=== PATIENT | female | born 1965 | race Caucasian/White ===

== ENCOUNTER 2024-12-05 15:17 | Outpatient (AMB) | payer OTHER, SELFPAY ==
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
--- OUTSIDE RECORDS SUMMARY | 2024-12-05 15:19 | XMS_ITS | Clinical Summary ---
Author Organization [facility] Address [address] [place] [address] Care Team Providers Care Economic Research Assistant Name Role Phone Flora Dominguez MD Primary Care Provider [phone] Allergies No known active allergies Medications multivitamin (MULTIPLE VITAMINS ORAL) Take 1 tablet by mouth 1 (one) time each day. Active cyclobenzaprin e (FLEXERIL) 5 mg tablet Take 1 tablet (5 mg total) by mouth at bedtime as needed for muscle spasms. 90 tablet 11/12/19 25 Active cholecalcifero l (VITAMIN D-3) 50 mcg (2,000 unit) tablet Take 1 tablet (2,000 Units total) by mouth 1 (one) time each day. 90 tablet 1 11/12/19 25 Active citalopram (CeleXA) 20 mg tablet Take 1 tablet (20 mg total) by mouth 1 (one) time each day. 90 tablet 1 12/05/19 25 Active tretinoin (RETIN-A) 0.1 % cream APPLY TO AFFECTED AREA EVERY EVENING, USE THREE TIMES A WEEK, LIMIT USE IF EXCESSIVE DRYNESS OCCURS. USE SPF IN AM 45 g 2 12/05/19 25 Active tretinoin (RETIN-A) 0.1 % cream APPLY TO AFFECTED AREA EVERY EVENING 12/08/19 22 025 Discontinued(Re order) cholecalcifero l (VITAMIN D-3) 50 mcg (2,000 unit) tablet TAKE 1 TABLET BY MOUTH EVERY DAY 90 tablet 1 04/29/20 24 025 Discontinued(Re order) citalopram (CeleXA) 20 mg tablet TAKE 1 AND /2 TABLETS BY MOUTH DAILY 135 tablet 1 07/25/19 25 025 Discontinued Active Problems Problem Noted Date Diagnosed Date Hyperlipidemia 07/30/2023 Paget's disease of bone 07/08/2019 Overview (07/30/2023): Seen on 07/07/2019 bone scan. Multiple thyroid nodules 05/28/2015 Depressive disorder 01/02/2013 Stress 02/29/2012 Seasonal allergies 02/29/2012 Acne 02/29/2012 Encounters Date Type Department Care Team Description 12/04/2024 3:30 PM EDT Office Visit [address] [phone] Flora Dominguez MD Depressive disorder (Primary Dx); Mixed hyperlipidemia; Vitamin D deficiency; Acne, unspecified acne type 11/11/2024 2:25 PM EDT - 11/11/2024 11:59 PM EDT Hospital Encounter [address] [phone] Chronic neck pain Discharge Disposition: Home or Self Care 11/11/2024 2:25 PM EDT - 11/11/2024 11:59 PM EDT Hospital Encounter [address] [phone] Lumbar back pain Discharge Disposition: Home or Self Care 11/11/2024 2:00 PM EDT Office Visit [address] [phone] Maria Guadalupe Dillon PA Chronic neck pain (Primary Dx); Lumbar back pain; Vitamin D deficiency 11/11/2024 Telephone Adult Medicine [address] [phone] Flora Dominguez MD Neck Pain 11/10/2024 Telephone Adult [address] [phone] Flora Dominguez MD Neck Pain; Back Pain; Leg Pain from Last 3 Months Immunizations Name Administration Dates Next Due Hepatitis B (Rhkexrz-F-Wwcxy , Recombivax HB-Adult) 19yo and older 07/30/2007,12/20/2006,11/14/2006 Influenza, Unspecified 03/15/2022 MMR, measles mumps and rubel la Live (Priorix; M-M-R II) 12mo and older 03/12/2007,10/25/2006 Moderna SARS-CoV-2 COVID-19, mRNA, LNP-S, preservative free 05/09/2021 PPD Test 05/17/2011 Pfizer SARS-CoV-2 COVID-19, mRNA, LNP-S, preservative free 07/27/2020,07/06/2020 Td Tetanus diptheria (Tdvax) 7yo and older 10/25 Tdap Tetanus diptheria acell ular pertussis (Boostrix; Adacel) 7yo and older 02/01/2022,05/17/2011 Surgical History Surgery Date Site/Laterality Comments TUBAL LIGATION 1998 PROCEDURE: HISTORICAL TUBAL LIGATION COLONOSCOPY 11/15/2016 PROCEDURE: HISTORICAL COLONOSCOPY; COMMENT: normal; repeat in 10 yrs Medical History Medical History Date Comments Pain in joint, shoulder region 10/25/2006 D X:Pain in joint, shoulder region Hyperlipidemia DX:Hyperlipidemi a Family History Medical History Relation Name Comments No Known Problems Father No Known Problems Mother Breast cancer Neg Hx Colon cancer Neg Hx Ovarian cancer Neg Hx Uterine cancer Neg Hx Relation Name Status Comments Brother Alive 5 brothers, all healthy Daughter Alive 1 daughter Father Alive healthy Maternal Grandfather (Age 72) MV A Maternal Grandmother (Age 95) Ol d age Mother Alive hand problem Paternal Grandfather (Age 88) Fe ll off roof Paternal Grandmother (Age 40) Br east cancer Sister Alive 6 sisters, all healthy Son Alive 3 sons Social History Tobacco Use Types Packs/Day Years Used Date Smoking Tobacco: Never Smokeless Tobacco: Never Tobacco Cessation:Counseling Given: Not Answered Alcohol Use Standard Drinks/Week Comments No 0 (1 standard drink = 0.6 oz pur e alcohol) Comments No Sex and Gender Information Value Date Recorded Sex Assigned at Not on file Legal Sex Female 10:45 AM EST Gender Identity Not on file Sexual Orientation Not on file Obstetrics History Last Filed Vital Signs Vital Sign Reading Time Taken Comments Blood Pressure 114/68 12/04/2024 3:20 PM EDT Pulse 78 12/04/2024 3:20 PM EDT Temperature 36.6 C (97.8 F) 12/04/2024 3:20 PM EDT Respiratory Rate 14 12/04/2024 3:20 PM EDT Oxygen Saturation 98% 12/04/2024 3:20 PM EDT Inhaled Oxygen Concentration - - Weight 61.7 kg (136 lb) 12/04/2024 3:20 PM EDT Height 162.6 cm (5' 4 ) 12/04/2024 3:20 PM EDT Body Mass Index 23.34 12/04/2024 3:20 PM EDT Plan of Treatment Upcoming Encounters Date Type Department Care Team (Late st Contact Info) Description 12/10/2024 2:30 PM EDT Consult Neurosurgery [facility] [address] [phone] Blade Antonio PA [address] [address] 05/27/2025 3:00 PM EST Office Visit Adult Medicine [address] [phone] Flora Dominguez MD [address] [place] [phone] Health Maintenance Due Date Last Done Comments Pneumococcal Vaccine: 50+ Years (1 of 1 - PCV) 2014 Zoster Vaccines (1 of 2) 2014 HIV Screening 04/29/2022 Social Influencers of Health Screening 04/29/2022 Cervical Cancer Screening: Pap Smear 06/18/2023 06/18/2020, 06/18/2020 Breast Cancer Screening 12/18/2023 12/18/19 22, 12/11/2020, 11/24/2017, Additional history exists COVID-19 Vaccine () 01/20/2024 05/09/2021, 07/27/2020, 07/06/2020 Depression Screening 05/21/2024 Influenza Vaccine (#1) 2025 03/15/2022 Colorectal Cancer Screening: Colonoscopy 11/15/2026 11/15/2016 Cholesterol Screening (Lipid Panel) 04/08/2029 04/08/2024, 06/08/2023 DTaP,Tdap,and Td Vaccines (4 - Td or Tdap) 02/02/2032 02/01/2022, 05/17/2011, 10/25/2006 RSV Immunization Adult Patients (1 - 1-dose 75+ series) 12/31/2039 MMR Vaccines Aged Out 03/12/2007, 10/25/2006 No lo nger eligible based on patient's age to complete this topic Hepatitis B Vaccines Completed 07/30/2007, 12/20/2006, 11/14/2006 Hepatitis C Screening Addressed 03/25/2023 Overri dden with the intention of not completing the topic HIB Vaccines Aged Out No longer eligi ble based on patient's age to complete this topic HPV Vaccines Aged Out No longer eligi ble based on patient's age to complete this topic Hepatitis A Vaccines Aged Out No long er eligible based on patient's age to complete this topic IPV Vaccines Aged Out No longer eligi ble based on patient's age to complete this topic Meningococcal ACWY Vaccine Aged Out N o longer eligible based on patient's age to complete this topic Meningococcal B Vaccine Aged Out No l onger eligible based on patient's age to complete this topic RSV Immunization Patients Under 20 months Aged Out No longer eligible based on patient's age to complete this topic Varicella Vaccines Aged Out No longer eligible based on patient's age to complete this topic Procedures Procedure Name Priority Date/Time Associated Diagnosis Comments XR LUMBAR SPINE 4+ VIEWS Routine 11/11/2024 2:47 PM EDT Lumbar back pain XR CERVICAL SPINE 4-5 VIEWS Routine 11/11/2024 2:47 PM EDT Chronic neck pain LIPID PANEL WITH REFLEX TO DIRECT LDL Routine 04/08/2024 11:45 AM EST Globus sensation SCREENING MAMMOGRAPHY BI 2-VIEW BREAST INC CAD Routine 12/17/2021 10:21 AM EDT Encounter for screening mammogram for malignant neoplasm of breast PAP SMEAR Routine 06/18/2020 HM COLONOSCOPY Routine 11/15/2016 from Last 3 Months or Most Recently Relevant to Health Maintenance Results * XR Lumbar Spine 4+ Views (11/11/2024 2:47 PM EDT) Anatomical Region Laterality Modality Spine, L-spine Radiographic Marii ging 11/11/2024 3:13 PM EDT Impressions 11/11/2024 3:14 PM EDT Multilevel degenerative changes, mildly progressed from 2019. -------- FINAL REPORT -------- Dictated By: Leena Curry Dictated Date: 11/11/2024 15:13 ET Assigned Physician: Leena Curry Reviewed and Electronically Signed By: Leena Curry Signed Date: 11/11/2024 15:14 ET Workstation ID: [id number] Transcribed By: Self Edit Transcribed Date: 11/11/2024 15:13 ET Narrative 11/11/2024 3:14 PM EDT XR LUMBAR SPINE 4 VIEWS Reason: lumbar back pain with radicular sx Comparison: Radiographs on June 04, 2019 FINDINGS: Normal alignment. No compression fracture. Disc spaces are preserved. Facet arthropathy at multiple levels, mildly progressed from 2020. Sacroiliac joints are intact. Unchanged appearance of the left iliac bone. Procedure Note Leena Curry MD - 11/11/2024 XR LUMBAR SPINE 4 VIEWS Reason: lumbar back pain with radicular sx Comparison: Radiographs on June 04, 2019 FINDINGS: Normal alignment. No compression fracture. Disc spaces are preserved.Facet arthropathy at multiple levels, mildly progressed from 2019.Sacroiliac joints are intact. Unchanged appearance of the left iliacbone. IMPRESSION: Multilevel degenerative changes, mildly progressed from 2020. -------- FINAL REPORT -------- Dictated By: Leena Curry Dictated Date: 11/11/2024 15:13 ET Assigned Physician: Leena Curry Reviewed and Electronically Signed By: Leena Curry Signed Date: 11/11/2024 15:14 ET Workstation ID: [id number] Transcribed By: Self Edit Transcribed Date: 11/11/2024 15:13 ET Maria Guadalupe Dillon JOSE JUAN IMG XR PROCEDURES Final Result * XR Cervical Spine 4-5 Views (11/11/2024 2:47 PM EDT) Anatomical Region Laterality Modality Spine, C-spine Radiographic Marii ging 11/11/2024 3:10 PM EDT Impressions 11/11/2024 3:13 PM EDT Degenerative changes with neuroforamina narrowing, progressed from 2018. -------- FINAL REPORT -------- Dictated By: Leena Curry Dictated Date: 11/11/2024 15:10 ET Assigned Physician: Leena Curry Reviewed and Electronically Signed By: Leena Curry Signed Date: 11/11/2024 15:13 ET Workstation ID: [id number] Transcribed By: Self Edit Transcribed Date: 11/11/2024 15:10 ET Narrative 11/11/2024 3:13 PM EDT XR CERVICAL SPINE 4-5 VIEWS Reason: neck pain, chronic with radicular symptoms Comparison: Radiographs on January 15, 2018 FINDINGS: Straightening of the cervical lordosis. Mild anterolisthesis of C4 on C5. No compression fracture. Degenerative changes at C5-C6 and C6-C7 with disc space narrowing and marginal osteophytes have mildly progressed from 2018. Neuroforamina narrowing on the right side at C3-C4, C5-C6 and C6-C7. Neuroforamina narrowing on the left side at C3-C4 and C6-C7. Prevertebral soft tissues are unremarkable. Procedure Note Leena uCrry MD - 11/11/2024 XR CERVICAL SPINE 4-5 VIEWS Reason: neck pain, chronic with radicular symptoms Comparison: Radiographs on January 15, 2018 FINDINGS: Straightening of the cervical lordosis. Mild anterolisthesis of C4 on C5.No compression fracture. Degenerative changes at C5-C6 and C6-C7 with discspace narrowing and marginal osteophytes have mildly progressed from 2018.Neuroforamina narrowing on the right side at C3-C4, C5-C6 and C6-C7.Neuroforamina narrowing on the left side at C3-C4 and C6-C7. Prevertebralsoft tissues are unremarkable. IMPRESSION: Degenerative changes with neuroforamina narrowing, progressed from 2018. -------- FINAL REPORT -------- Dictated By: Leena Curry Dictated Date: 11/11/2024 15:10 ET Assigned Physician: Leena Curry Reviewed and Electronically Signed By: Leena Curry Signed Date: 11/11/2024 15:13 ET Workstation ID: [id number] Transcribed By: Self Edit Transcribed Date: 11/11/2024 15:10 ET Maria Guadalupe MANZANO IMG XR PROCEDURES Final Result * (ABNORMAL) Lipid panel with reflex to direct LDL (04/08/2024 11:45 AM EST) Cholesterol 236(H) 0 - 200 mg/dL LAB CHEMISTRY METHOD 04/08/2024 2:50 PM [facility] Triglycerides 265(H) 0 - 150 mg/dL LAB CHEMISTRY METHOD 04/08/2024 2:50 PM [facility] HDL 67 >=40 mg/dL LAB CHEMISTRY METHOD 04/08/2024 2:50 PM EST [facility] LDL Calculated 116(H) 0 - 100 mg/dL LAB CHEMISTRY METHOD 04/08/2024 2:50 PM [facility] VLDL Cholesterol Anthony 53 mg/dL LAB CHEMISTRY METHOD 04/08/2024 2:50 PM EST [facility] Non HDL Chol. (LDL+VLDL) 169(H) <145 mg/dL LAB CHEMISTRY METHOD 04/08/2024 2:50 PM EST [facility] Chol/HDL Ratio 3.5 0.0 - 4.4 LAB CHEMISTRY METHOD 04/08/2024 2:50 PM EST [facility] Blood Venous blood specimen / Unknown Venipuncture / Unknown 04/08/2024 11:45 AM EST 04/08/2024 11:45 AM EST us Sourav MANZANO LAB BLOOD ORDERABLES Fin al Result [facility] ([facility] [address] [place] [address], * SCREENING MAMMOGRAPHY BI 2-VIEW BREAST INC CAD (12/17/2021 10:21 AM EDT) Anatomical Region Laterality Modality Radiographic Marii ging 12/11/2020 12:2 5 PM EDT Narrative 12/19/2021 2:29 PM EDT This is a summary report. The complete report is available in the patient's medical record. If you cannot access the medical record, please contact the sending organization for a detailed fax or copy. Exam: Screening mammogram Findings: Digital bilateral full-field screening mammography is performed with tomosynthesis and interpreted with the aid of computer-aided detection. Comparison is made with 12/11/2020 and 11/24/2017. Breast parenchyma is heterogeneously dense, limiting mammographic sensitivity. No new suspicious mass, architectural distortion, or suspicious calcifications. Impression: No mammographic evidence of malignancy. BI-RADS 1 - negative Procedure Note Chioma Ward MD - 05/09/2022 This is a summary report. The complete report is available in thepatient's medical record. If you cannot access the medical record, pleasecontact the sending organization for a detailed fax or copy. Exam: Screening mammogram Findings: Digital bilateral full-field screening mammography is performedwith tomosynthesis and interpreted with the aid of computer-aideddetection. Comparison is made with 12/11/2020 and 11/24/2017. Breast parenchyma is heterogeneously dense, limiting mammographicsensitivity. No new suspicious mass, architectural distortion, orsuspicious calcifications. Impression: No mammographic evidence of malignancy. BI-RADS 1 - negative us Radiology Results Historical MD IMJosie XR PROCEDURE S Final Result * Pap smear (06/18/2020) 06/18/2020 Narrative HISTORICAL TESTING LAB RESULTING AGENCY - 06/25/2020 11:41 AM EST [id number] THINPREP PAP, IMAGED: NEGATIVE FOR SQUAMOUS INTRAEPITHELIAL LESION AND MALIGNANCY . REACTIVE CELLULAR CHANGES. ABUNDANT PARTIALLY OBSCURING ACUTE INFLAMMATORY CELLS ARE PRESENT. RICKEY OLIVARES , CT(ASCP) (CASE SCREENED 06 23 2020) CIRO JUSTIN M.D. , PATHOLOGIST (CASE ELECTRONICALLY SIGNED 06 24 2020) RESULT OF APTIMA HIGH RISK HPV ASSAY: HIGH RISK HPV: NEGATIVE (SEROTYPES 16,18,31,33,35,39,45,51,52,56,58,59,66,68) COMPLETED ON 2020-06-22 ADEQUACY: SATISFACTORY ENDOCERVICAL/TRANSFORMATION ZONE COMPONENT PRESENT. SOURCE: THINPREP PAP HPV ANY DX: REFLEX 16 AND 18, CERVICAL, IMAGED CLINICAL INFORMATION: HPV ANY DIAGNOSIS. MENOPAUSE, PAP HX 2016 ASCUS, NEG HPV, Z12.4 Kenna SAMUELS LAB CYTOLOGY ORDERABLES Final Result HISTORICAL TESTING LAB RESULTING AGENCY * Colonoscopy (11/15/2016) Colonoscopy negative Anatomical Region Laterality Modality Other us Historical Provider HEALTH MAINTENANCE Final Result from Last 3 Months or Most Recently Relevant to Health Maintenance Insurance [facility] Care Teams Economic Research Assistant Relationship Specialty Start Date End Date Flora Dominguez MD [address] [place] [id number] PCP - General Internal Medicine 04/07/24
--- OUTSIDE RECORDS SUMMARY | 2024-12-05 15:19 | XMS_ITS | Clinical Summary ---
Author Organization [employer] Address [address] [facility] [address] [place] [address] Care Team Providers Care Advisory Internship Name Role Phone Unavailable Primary Care Provider Unavailabl e Allergies No known active allergies Medications cholecalciferol (Vitamin D-3) 50 MCG (1999) tablet Take by mouth in the morning. 05/04/2023 Active citalopram (CeleXA) 20 MG tablet TAKE 1 & 1/2 TABLETS BY MOUTH DAILY 05/04/2023 Active Social History Tobacco Use Types Packs/Day Years Used Date Smoking Tobacco: Never Smokeless Tobacco: Never Tobacco Cessation:Counseling Given: Not Answered Alcohol Use Standard Drinks/Week Comments Defer 0 (1 standard drink = 0.6 oz pur e alcohol) Comments Unknown Sex and Gender Information Value Date Recorded Sex Assigned at Female 03/20/2022 10:23 AM EDT Legal Sex Female 10:23 AM EDT Gender Identity Female 03/20/2022 10:23 AM EDT Sexual Orientation Straight 03/20/2022 10 :23 AM EDT Last Filed Vital Signs Vital Sign Reading Time Taken Comments Blood Pressure 120/60 05/17/2023 11:02 AM EST Pulse 65 05/17/2023 11:02 AM EST Temperature - - Respiratory Rate - - Oxygen Saturation - - Inhaled Oxygen Concentration - - Weight - - Height - - Body Mass Index - - Plan of Treatment Health Maintenance Due Date Last Done Comments CT Colonography 1964 Colonoscopy 1964 Colorectal Cancer Screening 1964 Depression Screening 1964 FIT DNA/Cologuard 1964 FIT 1964 FOBT 1964 HIV Screening 1964 SDOH Screening 1964 Sigmoidoscopy 1964 Disability Screening 1964 Alcohol/Substance Use Screening 1976 Hepatitis C Screening 1982 Pap Smear 1985 Cervical Cancer Screening 1994 HPV/Cotest 1994 Mammogram 2004 Pneumococcal Vaccine: 50+ Years (1 of 1 - PCV) 2014 Zoster Vaccines (1 of 2) 2014 Dental Oral Exam 11/17/2023 05/17/2023, , 08/10/2021 Dental Prophylaxis 11/17/2023 05/17/2023, 08/31/2021 COVID-19 Vaccine ( season) 2024 05/09/2021, 07/27/2020, 07/06/2020 Dental X-Ray: Full Mouth 08/11/2024 08/10/2021 Influenza Vaccine (#1) 2025 03/15/2022 Tobacco Screening 02/25/2025 02/26/2024 Dental X-Ray: Bitewings 02/26/2025 02/26/20, 12/11/2022, 11/02/2022, Additional history exists DTaP/Tdap/Td Vaccines (3 - Td or Tdap) 02/02/2032 02/01/2022, 05/17/2011, 10/25/2006 RSV Patients and Patients Aged 60 years or older (1 - 1-dose 75+ series) 12/31/2039 Hepatitis B Vaccines Completed 07/30/2007, 12/20/2006, 11/14/2006 HIB Vaccines Aged Out No longer eligi [...] patient's age to complete this topic Meningococcal Vaccine Aged Out No kalie chet eligible based on patient's age to complete this topic RSV under 20 months Aged Out No longe r eligible based on patient's age to complete this topic Rotavirus Vaccines Aged Out No longer eligible based on patient's age to complete this topic Procedures Procedure Name Priority Date/Time Associated Diagnosis Comments BITEWING - SINGLE RADIOGRAPHIC IMAGE Routine 02/26/2024 10:00 AM EDT PROPHYLAXIS - ADULT Routine 05/17/2023 1 1:00 AM EST PERIODIC ORAL EVALUATION - ESTABLISHED PATIENT Routine 05/17/2023 11:00 AM EST from Last 3 Months or Most Recently Relevant to Health Maintenance
[2024-12-05 15:22] VITALS: BP 104/53; PULSE 85; O2SAT 99; BMI 23.7
== END 2024-12-05 16:11 | disposition home or self-care (01) ==
PROVIDERS: PCP Internal Medicine; Visit Provider Nurse Practitioner Family
DX: M54.12 Radiculopathy, cervical region (principal); M50.30 Other cervical disc degeneration, unspecified cervical region; M47.812 Spondylosis without myelopathy or radiculopathy, cervical region; M54.50 Low back pain, unspecified; G89.29 Other chronic pain; M51.369 Other intervertebral disc degeneration, lumbar region without mention of lumbar back pain or lower extremity pain; M47.817 Spondylosis without myelopathy or radiculopathy, lumbosacral region
CPT/HCPCS: 99204

== ENCOUNTER 2024-12-22 16:05 | Outpatient (REF) | payer OTHER, SELFPAY ==
--- NOTE | ~2024-12-22 | MR_ITS ---
EXAM: MRI cervical spine without contrast TECHNIQUE: Multiplanar multisequence imaging through the cervical spine was performed from the base of the skull through at least T1. INDICATION: Cervical radiculopathy PRIOR: None FINDINGS: Skull Base: There is no tonsillar ectopia. Cranialcervical junction is intact. Cord: There is mildly increased central cord signal on fluid sensitive sequences between C4-5 and C7-T1. Marrow and end-plates: There are no marrow replacing lesions. Degenerative endplate signal changes are present at C5-6 and C6-7. Alignment: There is mild reversal cervical lordosis. Soft tissues: Paraspinal soft tissues and major vascular structures are unremarkable. C2-3: Mild broad-based disc bulge is present. Uncovertebral osteophytes and this results in moderate right and severe left foraminal narrowing. C3-4: Broad-based disc bulge and ligamentum flavum thickening results in mild spinal stenosis. Disc and osteophytes result in mild right and severe left foraminal narrowing. C4-5: Disc bulge results in borderline narrowing of the spinal canal. Disc and osteophytes results in moderate right and severe left foraminal narrowing. C5-6: Broad-based disc bulges asymmetric toward the right central region. There is mild loss of disc height and mild spinal stenosis. Disc and osteophyte results in mild to moderate bilateral foraminal narrowing. C6-7: There is mild loss disc height and circumferential broad-based disc bulge with endplate osteophytes resulting in moderate spinal stenosis. There is focal left foraminal extrusion. There is severe bilateral foraminal narrowing, greater on the left. C7-T1: There is no disc bulge, herniation, spinal stenosis, or foraminal narrowing. MR/MR cervical spine wo con IMPRESSION: C2-3: There is moderate right and severe left foraminal narrowing. C3-4: There is a mild spinal stenosis and severe left foraminal narrowing. C4-5: There is borderline narrowing of the spinal and moderate right and severe left foraminal narrowing. C5-6: There is mild spinal stenosis and mild to moderate bilateral foraminal narrowing. C6-7: There is moderate spinal stenosis with focal left disc herniation and severe bilateral foraminal narrowing, greater on the left. Electronically signed by: Armani Miles MD 12/22/2024 05:04 PM EDT
--- OUTSIDE RECORDS SUMMARY | 2024-12-22 16:08 | XMS_ITS | Clinical Summary ---
Author Organization Patient Business [employer] [facility] Address [address] [place] [address] Care Team Providers Care Small Arms Repairer Name Role Phone Flora Dominguez MD Primary Care Provider [phone] Allergies No known active allergies Medications multivitamin [...] EVERY EVENING 12/08/19 22 025 Discontinued(Re order) citalopram (CeleXA) 20 mg tablet TAKE 1 AND 1/2 TABLETS BY MOUTH DAILY 135 tablet 1 07/25/19 25 025 Discontinued Active Problems Problem Noted Date Diagnosed Date Hyperlipidemia 07/30/2023 Paget's disease of bone 07/08/2019 Overview (07/30/2023): Seen on 07/07/2019 bone scan. Multiple thyroid nodules 05/28/2015 Depressive disorder 01/02/2013 Stress 02/29/2012 Seasonal allergies 02/29/2012 Acne 02/29/2012 Encounters Date Type Department Care Team Description 12/04/2024 3:30 PM EDT Office Visit Adult [address] [phone] Flora Dominguez MD Depressive disorder (Primary Dx); Mixed hyperlipidemia; Vitamin D deficiency; Acne, unspecified acne type 11/11/2024 2:25 PM EDT - 11/11/2024 11:59 PM EDT Hospital Encounter [address] [phone] Chronic neck pain Discharge Disposition: Home or Self Care 11/11/2024 2:25 PM EDT - 11/11/2024 11:59 PM EDT Hospital Encounter [address] [phone] Lumbar back pain Discharge Disposition: Home or Self Care 11/11/2024 2:00 PM EDT Office Visit [address] [phone] Maria Guadalupe Dillon PA Chronic neck pain (Primary Dx); Lumbar back pain; Vitamin D deficiency 11/11/2024 Telephone Adult [address] [phone] Flora Dominguez MD Neck Pain 11/10/2024 Telephone Adult [address] [phone] Flora Dominguez MD Neck Pain; Back Pain; Leg Pain from Last 3 Months Immunizations Name Administration Dates Next Due Hepatitis B (Igutten-C-[place] , Recombivax HB-Adult) 19yo and older 07/30/2007,12/20/2006,11/14/2006 [...] Care Team (Late st Contact Info) Description 05/27/2025 3:00 PM EST Office Visit Adult Medicine [facility] [place] [address] [place] [phone] Flora Dominguez MD [address] [place] [id number] Health Maintenance Due Date Last Done Comments Pneumococcal Vaccine: 50+ Years (1 of 1 - PCV) 2014 Zoster Vaccines (1 of 2) 2014 HIV Screening 04/29/2022 Social Influencers of Health Screening 04/29/2022 Cervical Cancer Screening: Pap Smear 06/18/2023 06/18/2020, 06/18/2020 Breast Cancer Screening 12/18/2023 12/18/19 22, 12/11/2020, 11/24/2017, Additional history exists COVID-19 Vaccine ( - season) 2024 05/09/2021, 07/27/2020, 07/06/2020 Depression Screening 05/21/2024 Influenza Vaccine (#1) 2025 03/15/2022 Colorectal Cancer Screening: Colonoscopy 11/15/2026 11/15/2016 Cholesterol Screening (Lipid Panel) 12/12/2029 12/12/2024, 04/08/2024, 06/08/2023 DTaP,Tdap,and Td Vaccines (4 - [...] Procedure Name Priority Date/Time Associated Diagnosis Comments CBC WITH AUTO DIFFERENTIAL Routine 12/12/2024 11:46 AM EDT Depressive disorder LIPID PANEL WITH REFLEX TO DIRECT LDL Routine 12/12/2024 11:46 AM EDT Mixed hyperlipidemia COMPREHENSIVE METABOLIC PANEL Routine 12/12/2024 11:46 AM EDT Mixed hyperlipidemia CBC AND DIFFERENTIAL Routine 12/12/2024 11:46 AM EDT Depressive disorder THYROID STIMULATING HORMONE WITH REFLEX TO FREE T4 AND FREE T3 Routine 12/12/2024 11:46 AM EDT Depressive disorder VITAMIN D 25 HYDROXY Routine 12/12/2024 11:46 AM EDT Vitamin D deficiency XR LUMBAR SPINE 4+ VIEWS Routine 11/11/2024 2:47 PM EDT Lumbar back pain XR CERVICAL SPINE 4-5 VIEWS Routine 11/11/2024 2:47 PM EDT Chronic neck pain SCREENING MAMMOGRAPHY BI 2-VIEW BREAST INC CAD Routine 12/17/2021 10:21 AM EDT Encounter for screening mammogram for malignant neoplasm of breast PAP SMEAR Routine 06/18/2020 HM COLONOSCOPY Routine 11/15/2016 from Last 3 Months or Most Recently Relevant to Health Maintenance Results * Thyroid stimulating hormone with reflex to free t4 and free t3 (12/12/2024 11:46 AM EDT) TSH 1.13 0.40 - 4.00 mcIU/mL LAB CHEMISTRY METHOD 12/12/2024 4:59 PM EDT [facility] Blood Venous blood specimen / Unknown Venipuncture / Unknown 12/12/2024 11:46 AM EDT 12/12/2024 11:46 AM EDT us Flora Dominguez MD LAB BLOOD ORDERABLES Final Resul t [facility] [address] [place] [address], [place] [phone] * (ABNORMAL) Lipid panel with reflex to direct LDL (12/12/2024 11:46 AM EDT) Cholesterol 220(H) 0 - 200 mg/dL LAB CHEMISTRY METHOD 12/12/2024 4:06 PM EDT [facility] Triglycerides 117 0 - 150 mg/dL LAB CHEMISTRY METHOD 12/12/2024 4:06 PM EDT [facility] HDL 62 >=40 mg/dL LAB CHEMISTRY METHOD 12/12/2024 4:06 PM EDT [facility] LDL Calculated 135(H) 0 - 100 mg/dL LAB CHEMISTRY METHOD 12/12/2024 4:06 PM EDT [facility] VLDL Cholesterol Anthony 23.4 mg/dL LAB CHEMISTRY METHOD 12/12/2024 4:06 PM EDT [facility] Non HDL Chol. (LDL+VLDL) 158(H) <145 mg/dL LAB CHEMISTRY METHOD 12/12/2024 4:06 PM EDT [facility] Chol/HDL Ratio 3.5 0.0 - 4.4 LAB CHEMISTRY METHOD 12/12/2024 4:06 PM [facility] Blood Venous blood specimen / Unknown Venipuncture / Unknown 12/12/2024 11:46 AM EDT 12/12/2024 11:46 AM EDT us Flora Dominguez MD LAB BLOOD ORDERABLES Final Resul t [facility] [address] [place] [address], [place] [phone] * CBC auto differential (12/12/2024 11:46 AM EDT) WBC 5.2 4.8 - 10.8 K/mcL LAB HEMETOLOGY METHOD 12/12/2024 2:07 PM EDT [facility] RBC 4.80 3.80 - 4.80 M/mcL LAB HEMETOLOGY METHOD 12/12/2024 2:07 PM [facility] Hemoglobin 13.2 11.5 - 16.0 g/dL LAB HEMETOLOGY METHOD 12/12/2024 2:07 PM EDT [facility] Hematocrit 41.1 35.0 - 47.0 % LAB [facility]ETOLOGY [facility] MCV 85.6 79.0 - 98.0 FL LAB HEMETOLOGY METHOD 12/12/2024 2:07 PM [facility] MCH 27.5 27.0 - 32.0 pcg LAB HEMETOLOGY METHOD 12/12/2024 2:07 PM EDT [facility] MCHC 32.1 32.0 - 37.0 g/dL LAB HEMETOLOGY METHOD 12/12/2024 2:07 PM T [facility] RDW 12.9 11.0 - 15.0 % LAB HEMETOLOGY METHOD 12/12/2024 2:07 PM [facility] Platelets 160 130 - 400 K/mcL LAB HEMETOLOGY METHOD 12/12/2024 2:07 PM [facility] MPV 10.3 7.0 - 11.0 FL LAB HEMETOLOGY METHOD 12/12/2024 2:07 PM [facility] NRBC 0.0 <1.0 % LAB HEMETOLOGY METHOD 12/12/2024 2:07 PM [facility] NRBC Absolute 0.00 <0.10 K/mcL LAB HEMETOLOGY METHOD 12/12/2024 2:07 PM [facility] Neutrophils Relative 62.7 % LAB HEMETOLOGY METHOD 12/12/2024 2:07 PM [facility] Lymphocytes Relative 28.1 % LAB HEMETOLOGY METHOD 12/12/2024 2:07 PM [facility] Monocytes Relative 6.9 % LAB HEMETOLOGY METHOD 12/12/2024 2:07 PM [facility] Eosinophils Relative 1.7 % LAB HEMETOLOGY METHOD 12/12/2024 2:07 PM [facility] Basophils Relative 0.4 % LAB HEMETOLOGY METHOD 12/12/2024 2:07 PM [facility] Immature Granulocytes Relative 0.2 % LAB HEMETOLOGY METHOD 12/12/2024 2:07 PM [facility] Neutrophils Absolute 3.29 1.50 - 7.00 K/mcL LAB HEMETOLOGY METHOD 12/12/2024 2:07 PM [facility] Lymphocytes Absolute 1.47 1.00 - 5.00 K/mcL LAB HEMETOLOGY METHOD 12/12/2024 2:07 PM EDT [facility] Monocytes Absolute 0.36 0.20 - 1.00 K/mcL LAB HEMETOLOGY METHOD 12/12/2024 2:07 PM EDT [facility] Eosinophils Absolute 0.09 0.00 - 0.50 K/[facility] LAB HEMETOLOGY METHOD 12/12/2024 2:07 PM EDT [facility] Basophils Absolute 0.02 0.00 - 0.20 K/[facility] LAB HEMETOLOGY METHOD 12/12/2024 2:07 PM EDT [facility] Immature Granulocytes Absolute 0.01 0.00 - 0.03 K/[facility] LAB HEMETOLOGY METHOD 12/12/2024 2:07 PM EDT [facility] Blood Venous blood specimen / Unknown Venipuncture / Unknown 12/12/2024 11:46 AM EDT 12/12/2024 11:46 AM EDT us Flora Dominguez MD LAB BLOOD ORDERABLES Final Resul t [facility] [address] [place] [address], * Vitamin D 25 hydroxy (12/12/2024 11:46 AM EDT) Vit D, 25-Hydroxy 49.1 30.0 - 80.0 ng/mL LAB CHEMISTRY METHOD 12/12/2024 4:59 PM EDT [facility] Blood Venous blood specimen / Unknown Venipuncture / Unknown 12/12/2024 11:46 AM EDT 12/12/2024 11:46 AM EDT us Flora Dominguez MD LAB BLOOD ORDERABLES Final Resul t [facility] [address] [place] [address], [place] [phone] * (ABNORMAL) Comprehensive metabolic panel (12/12/2024 11:46 AM EDT) Sodium 136 133 - 145 mmol/L LAB CHEMISTRY METHOD 12/12/2024 4:06 PM [facility] Potassium 3.8 3.5 - 5.5 mmol/L LAB CHEMISTRY METHOD 12/12/2024 4:06 PM [facility] Chloride 99 96 - 110 mmol/L LAB CHEMISTRY METHOD 12/12/2024 4:06 PM [facility] CO2 33(H) 21 - 32 mmol/L LAB CHEMISTRY METHOD 12/12/2024 4:06 PM [facility] Anion Gap 4 3 - 11 LAB CHEMISTRY METHOD 12/12/2024 4:06 PM [facility] Glucose 82 70 - 100 mg/dL LAB CHEMISTRY METHOD 12/12/2024 4:06 PM [facility] BUN 9 5 - 25 mg/dL LAB CHEMISTRY METHOD 12/12/2024 4:06 PM [facility] Creatinine 0.62 0.50 - 1.10 mg/dL LAB CHEMISTRY METHOD 12/12/2024 4:06 PM [facility] eGFR 103 >=60 mL/min/1. 73m2 LAB CHEMISTRY METHOD 12/12/2024 4:06 PM [facility] Comment:Calculation based on the Chronic Kidney Disease Epidemiology Collaboration (CKD-EPI) equation refit without adjustment for race. BUN/Creatinine Ratio 14.5 LAB CHEMISTRY METHOD 12/12/2024 4:06 PM [facility] Calcium 9.3 8.5 - 10.5 mg/dL LAB CHEMISTRY METHOD 12/12/2024 4:06 PM [facility] AST (SGOT) 18 10 - 42 unit/L LAB CHEMISTRY METHOD 12/12/2024 4:06 PM EDT [facility] ALT (SGPT) 26 10 - 60 unit/L LAB CHEMISTRY METHOD 12/12/2024 4:06 PM EDT [facility] Alkaline Phosphatase 91 42 - 121 unit/L LAB CHEMISTRY METHOD 12/12/2024 4:06 PM EDT [facility] Total Protein 7.0 6.0 - 8.0 g/dL LAB CHEMISTRY METHOD 12/12/2024 4:06 PM EDT [facility] Albumin 4.4 3.2 - 5.0 g/dL LAB CHEMISTRY METHOD 12/12/2024 4:06 PM EDT [facility] Total Bilirubin 0.3 0.0 - 1.4 mg/dL LAB CHEMISTRY METHOD 12/12/2024 4:06 PM EDT [facility] Blood Venous blood specimen / Unknown Venipuncture / Unknown 12/12/2024 11:46 AM EDT 12/12/2024 11:46 AM EDT us Flora Dominguez MD LAB BLOOD ORDERABLES Final Resul t [facility] [address] [place] [address], [place] [phone] * XR Lumbar Spine 4+ Views (11/11/2024 [...] Signed Date: 11/11/2024 15:14 ET Workstation ID: [id number] Transcribed By: Self Edit Transcribed Date: 11/11/2024 15:13 ET Narrative 11/11/2024 3:14 PM EDT XR LUMBAR SPINE 4 VIEWS Reason: lumbar back pain with radicular sx Comparison: Radiographs on June 04, 2019 FINDINGS: Normal alignment. No compression fracture. Disc spaces are preserved. Facet arthropathy at multiple levels, mildly progressed from 2019. Sacroiliac joints are intact. Unchanged appearance of [...] IMPRESSION: Multilevel degenerative changes, mildly progressed from 2019. -------- FINAL REPORT -------- Dictated By: Leena Curry Dictated Date: 11/11/2024 15:13 ET Assigned Physician: Leena Curry Reviewed and Electronically Signed By: Leena Curry Signed Date: 11/11/2024 15:14 ET Workstation ID: [id number] Transcribed By: Self Edit Transcribed Date: 11/11/2024 15:13 ET [facility] Toma Bernard MANZANO IMG XR PROCEDURES Final Result * XR [...] Signed Date: 11/11/2024 15:13 ET Workstation ID: [id number] Transcribed By: Self Edit Transcribed Date: 11/11/2024 [...] soft tissues are unremarkable. Procedure Note Leena Curry MD - 11/11/2024 XR CERVICAL SPINE 4-5 [...] Signed Date: 11/11/2024 15:13 ET Workstation ID: [id number] Transcribed By: Self Edit Transcribed Date: 11/11/2024 15:10 ET Maria Guadalupe Toma Bernard Wilma MANZANO IMG XR PROCEDURES Final Result * SCREENING MAMMOGRAPHY BI 2-VIEW BREAST INC [...] 1 - negative us Radiology Results Historical IMJosie XR PROCEDURE S Final Result * Pap smear (06/18/2020) 06/18/2020 Narrative HISTORICAL TESTING LAB RESULTING AGENCY - 06/25/2020 11:41 AM EST [id number] THINPREP PAP, IMAGED: NEGATIVE FOR SQUAMOUS INTRAEPITHELIAL [...] Colonoscopy negative Anatomical Region Laterality Modality Other Historical Provider HEALTH MAINTENANCE Final Result from Last 3 Months or Most Recently Relevant to Health Maintenance Insurance [facility] Care Teams Small Arms Repairer Relationship Specialty Start Date End Date Flora Dominguez MD [address] [place] [phone] PCP - General Internal Medicine 04/07/24
--- OUTSIDE RECORDS SUMMARY | 2024-12-22 16:08 | XMS_ITS ---
Author Name [facility] Organization Unknown Care Team Organization Name Specialty Phone Email Start Date End Da te [facility] lFora Dominguez Primary Care 11/23/2022 024 [facility] Glenna Primary Care 07/26/2022 01/07/2024 [facility] Derian Cook Primary Care 03/28/20222023
--- OUTSIDE RECORDS SUMMARY | 2024-12-22 16:08 | XMS_ITS | Encounter Summary ---
Author Organization [employer] Address [address] [place] [address] [address] [place] [address] Care Team Providers Care Precipitator Supervisor Name Role Phone Unavailable Primary Care Provider Unavailabl e Reason for Visit * Reason Onset Date Comments appt for root canal 03/26/2023 Encounter Details Date Type Department Care Team (Late st Contact Info) Description 03/26/2023 Telephone [facility] [address] [place] [address] Barbara Walters DDS [address] [place] [address] appt for root canal Social History Tobacco Use Types Packs/Day Years Used Date Smoking Tobacco: Never Smokeless Tobacco: Never Alcohol Use Standard Drinks/Week Comments Defer 0 (1 standard drink = 0.6 oz pur e alcohol) Comments Unknown Sex and Gender Information Value Date Recorded Sex Assigned at Female 03/20/2022 10:23 AM EDT Legal Sex Female 10:23 AM EDT Gender Identity Female 03/20/2022 10:23 AM EDT Sexual Orientation Straight 03/20/2022 10 :23 AM EDT documented as of this encounter Miscellaneous Notes * Telephone Encounter - Britt Bruner - 03/26/2023 3:56 PM EST Patient called to book her root canal shaw. She would like a call. documented in this encounter Plan of Treatment Not on file documented as of this encounter Visit Diagnoses Not on filedocumented in this encounter
== END 2024-12-22 16:06 | disposition home or self-care (01) ==
LOC: HO.MRI 16:05
PROVIDERS: PCP Internal Medicine; Visit Provider Nurse Practitioner Family
DX: M47.22 Other spondylosis with radiculopathy, cervical region (principal); M50.30 Other cervical disc degeneration, unspecified cervical region
CPT/HCPCS: 72141

== ENCOUNTER → 2024-12-22 16:14 | Outpatient (BNV) | payer OTHER, SELFPAY | PROVIDERS: PCP Internal Medicine; Visit Provider Radiology Diagnostic Radiology | DX: M99.71 Connective tissue and disc stenosis of intervertebral foramina of cervical region (principal); M48.061 Spinal stenosis, lumbar region without neurogenic claudication | CPT/HCPCS: 72141 ==

== ENCOUNTER 2025-01-26 14:09 | Outpatient (AMB) | payer OTHER, SELFPAY ==
[2025-01-26 14:14] VITALS: BP 123/55; PULSE 69; RESP 18; O2SAT 97; BMI 23.7
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
--- OUTSIDE RECORDS SUMMARY | 2025-01-26 16:31 | XMS_ITS | Encounter Summary ---
Author Organization [employer] Address [address] [place] [address] [address] [place] [address] Care Team Providers Care Agricultural Education Professor Name Role Phone Unavailable Primary Care Provider Unavailabl e Reason for Visit * Reason Onset Date Comments appt for root canal 03/26/2023 Encounter Details Date Type Department Care Team (Late Contact Info) Description 03/26/2023 Telephone [facility] [address] [place] [address] Barbara Walters DDS [address] [place] [address] appt for root canal Social History Tobacco [...] documented in this encounter Plan of Treatment Upcoming Encounters Date Type Department Care Team (Late Contact Info) Description 04/09/2025 10:00 AM EST Office Visit [facility] [address] [place] [address] [place] documented as of this encounter Visit Diagnoses Not on filedocumented in this encounter
--- OUTSIDE RECORDS SUMMARY | 2025-01-26 16:31 | XMS_ITS | Encounter Summary ---
Author Organization [employer] Address [address] [place] [address] [address] [place] [address] Care Team Providers Care Cable Technician Name Role Phone Unavailable Primary Care Provider Unavailabl e Encounter Details Date Type Department Care Team (Late Contact Info) Description 06/14/2023 Telephone [facility] [address] [place] [address] Barbara Walters DDS [address] [place] [address] Social History Tobacco Use Types Packs/Day Years [...] * Telephone Encounter - Britt Bruner - 06/14/2023 12:02 PM EST Patient called she called the insurance about a bridge the insurance gave her two codes so it can be summit and approve.can we call the patient documented in this encounter Plan of Treatment Upcoming Encounters Date Type Department Care Team (Late Contact Info) Description 04/09/2025 10:00 AM EST Office Visit [facility] [address] [place] [address] [place] documented as of this encounter Visit Diagnoses Not on filedocumented in this encounter
--- OUTSIDE RECORDS SUMMARY | 2025-01-26 16:31 | XMS_ITS | Clinical Summary ---
Author Organization Patient Business Ser [facility] Address [address] [place] [address] Care Team Providers Care Can Inspector Name Role Phone Flora Dominguez MD Primary Care Provider [phone] Allergies No known active allergies Medications multivitamin (MULTIPLE VITAMINS ORAL) Take 1 tablet by mouth 1 (one) time each day. Active cyclobenzaprine (FLEXERIL) 5 mg tablet Take 1 tablet (5 mg total) by mouth at bedtime as needed for muscle spasms. 90 tablet 5 Active cholecalciferol (VITAMIN D-3) 50 mcg (2,000 unit) tablet Take 1 tablet (2,000 Units total) by mouth 1 (one) time each day. 90 tablet 1 5 Active citalopram (CeleXA) 20 mg tablet Take 1 tablet (20 mg total) by mouth 1 (one) time each day. 90 tablet 1 5 Active tretinoin (RETIN-A) 0.1 % cream APPLY TO AFFECTED AREA EVERY EVENING, USE THREE TIMES A WEEK, LIMIT USE IF EXCESSIVE DRYNESS OCCURS. USE SPF IN AM 45 g 2 5 Active Active Problems Problem Noted Date Diagnosed Date Hyperlipidemia 07/30/2023 Paget's disease of bone 07/08/2019 Overview (07/30/2023): Seen on 07/07/2019 bone scan. Multiple thyroid nodules 05/28/2015 Depressive disorder 01/02/2013 Stress 02/29/2012 Seasonal allergies 02/29/2012 Acne 02/29/2012 Encounters Date Type Department Care Team Description 12/04/2024 3:30 PM EDT Office Visit Adult [address] [phone] Flora Dominguez MD Depressive disorder (Primary Dx); Mixed hyperlipidemia; Vitamin D deficiency; Acne, unspecified acne type 11/11/2024 2:25 PM EDT - 11/11/2024 11:59 PM EDT Hospital Encounter [address] [phone] Chronic neck pain Discharge Disposition: Home or Self Care 11/11/2024 2:25 PM EDT - 11/11/2024 11:59 PM EDT Hospital Encounter [address] [phone] Lumbar back pain Discharge Disposition: Home or Self Care 11/11/2024 2:00 PM EDT Office Visit Adult [address] [phone] Maria Gaudalupe Dillon PA Chronic neck pain (Primary Dx); Lumbar back pain; Vitamin D deficiency 11/11/2024 Telephone Adult Medicine [address] [phone] Flora Dominguez MD 11/10/2024 Telephone Adult Medicine [address] [phone] Flora Dominguez MD from Last 3 Months Immunizations Name Administration Dates Next Due Hepatitis B (Luqktyu-M-Lijvw , Recombivax HB-Adult) 19yo and older 07/30/2007,12/20/2006,11/14/2006 Influenza, Unspecified 03/15/2022 MMR, measles mumps and rubel la Live (Priorix; M-M-R II) 12mo and older 03/12/2007,10/25/2006 Moderna SARS-CoV-2 COVID-19, mRNA, LNP-S, preservative free 05/09/2021 PPD Test 05/17/2011 Adaptly SARS-CoV-2 COVID-19, mRNA, LNP-S, preservative free 07/27/2020,07/06/2020 [...] 3:00 PM EST Office Visit Adult Medicine [facility] [address] [place], [place] [phone] Flora Dominguez MD [address] [place] [address] Health Maintenance Due Date Last Done Comments Pneumococcal Vaccine: 50+ Years (1 of 1 - PCV) 2014 Zoster Vaccines (1 of 2) 2014 HIV Screening 04/29/2022 Social Influencers of Health Screening 04/29/2022 Cervical Cancer Screening: Pap Smear 06/18/2023 06/18/2020, 06/18/2020 Breast Cancer Screening 12/18/2023 12/18/19 22, 12/11/2020, 11/24/2017, Additional history exists Depression Screening 05/21/2024 COVID-19 Vaccine ( season) 2025 05/09/2021, 07/27/2020, 07/06/2020 Influenza Vaccine (#1) 2025 03/15/2022 Colorectal Cancer [...] Procedure Name Priority Date/Time Associated Diagnosis Comments EXTERNAL MRI REPORT 12/22/2024 EXTERNAL MRI REPORT 12/22/2024 CBC WITH AUTO DIFFERENTIAL Routine 12/12/2024 11:46 [...] neoplasm of breast PAP SMEAR Routine 06/18/2020 COLONOSCOPY Routine 11/15/2016 from Last 3 Months or Most Recently Relevant to Health Maintenance Results * External MRI Report (12/22/2024) Only the most recent of2 resultswithin the time period is included. Anatomical Region Laterality Modality Magnetic Resonan ce us Provider [facility] IMG MRI PROCEDURES Final Result * Thyroid stimulating hormone with reflex to free t4 and free t3 (12/12/2024 11:46 AM EDT) Pathologist [facility] TSH 1.13 0.40 - 4.00 mcIU/mL LAB CHEMISTRY METHOD 12/12/2024 4:59 PM EDT [facility] Blood Venous blood specimen / Unknown Venipuncture / Unknown 12/12/2024 11:46 AM EDT 12/12/2024 11:46 AM EDT us Flora Dominguez MD LAB BLOOD ORDERABLES Final Resul t [facility] [address] [place] [address], [place] [phone] * (ABNORMAL) Lipid panel with reflex to direct LDL (12/12/2024 11:46 AM EDT) Cholesterol 220(H) 0 - 200 mg/dL LAB CHEMISTRY METHOD 12/12/2024 4:06 PM EDT [facility] Triglycerides 117 0 - 150 mg/dL LAB CHEMISTRY METHOD 12/12/2024 4:06 PM EDT [facility] HDL 62 >=40 mg/dL LAB CHEMISTRY METHOD 12/12/2024 4:06 PM EDT [facility] LDL Calculated 135(H) 0 - 100 mg/dL LAB CHEMISTRY METHOD 12/12/2024 4:06 PM EDT [facility] VLDL Cholesterol Anthony 23.4 mg/dL LAB CHEMISTRY METHOD 12/12/2024 4:06 PM EDT [facility] Non HDL Chol. (LDL+VLDL) 158(H) <145 mg/dL LAB CHEMISTRY METHOD 12/12/2024 4:06 PM EDT [facility] Chol/HDL Ratio 3.5 0.0 - 4.4 LAB CHEMISTRY METHOD 12/12/2024 4:06 PM EDT [facility] Blood Venous blood specimen / Unknown Venipuncture / Unknown 12/12/2024 11:46 AM EDT 12/12/2024 11:46 AM EDT us Flora Dominguez MD LAB BLOOD ORDERABLES Final Resul t [facility] [address] [place] [address], [place] [phone] * CBC auto differential (12/12/2024 11:46 AM EDT) WBC 5.2 4.8 - 10.8 K/mcL LAB HEMETOLOGY METHOD 12/12/2024 2:07 PM EDT [facility] RBC 4.80 3.80 - 4.80 M/mcL LAB HEMETOLOGY METHOD 12/12/2024 2:07 PM [facility] Hemoglobin 13.2 11.5 - 16.0 g/dL LAB HEMETOLOGY METHOD 12/12/2024 2:07 PM EDT [facility] Hematocrit 41.1 35.0 - 47.0 % LAB HEMETOLOGY METHOD 12/12/2024 2:07 PM [facility] MCV 85.6 79.0 - 98.0 FL LAB HEMETOLOGY METHOD 12/12/2024 2:07 PM [facility] MCH 27.5 27.0 - 32.0 pcg LAB HEMETOLOGY METHOD 12/12/2024 2:07 PM EDT [facility] MCHC 32.1 32.0 - 37.0 g/dL LAB HEMETOLOGY METHOD 12/12/2024 2:07 PM [facility] RDW 12.9 11.0 - 15.0 % LAB HEMETOLOGY METHOD 12/12/2024 2:07 PM [facility] Platelets 160 130 - 400 K/mcL LAB HEMETOLOGY METHOD 12/12/2024 2:07 PM [facility] MPV 10.3 7.0 - 11.0 FL LAB HEMETOLOGY METHOD 12/12/2024 2:07 PM [facility] NRBC 0.0 <1.0 % LAB HEMETOLOGY METHOD 12/12/2024 2:07 PM [facility] NRBC Absolute 0.00 <0.10 K/mcL LAB HEMETOLOGY METHOD 12/12/2024 2:07 PM [facility] Neutrophils Relative 62.7 % LAB HEMETOLOGY METHOD 12/12/2024 2:07 PM [facility] Lymphocytes Relative 28.1 % LAB HEMETOLOGY METHOD 12/12/2024 2:07 PM [facility] Monocytes Relative 6.9 % LAB HEMETOLOGY METHOD 12/12/2024 2:07 PM [facility] Eosinophils Relative 1.7 % LAB HEMETOLOGY METHOD 12/12/2024 2:07 PM [facility] Basophils Relative 0.4 % LAB HEMETOLOGY METHOD 12/12/2024 2:07 PM [facility] Immature Granulocytes Relative 0.2 % LAB HEMETOLOGY METHOD 12/12/2024 2:07 PM [facility] Neutrophils Absolute 3.29 1.50 - 7.00 K/mcL LAB HEMETOLOGY METHOD 12/12/2024 2:07 PM [facility] Lymphocytes Absolute 1.47 1.00 - 5.00 K/mcL LAB HEMETOLOGY METHOD 12/12/2024 2:07 PM EDT [facility] Monocytes Absolute 0.36 0.20 - 1.00 K/mcL LAB HEMETOLOGY METHOD 12/12/2024 2:07 PM EDT [facility] Eosinophils Absolute 0.09 0.00 - 0.50 K/[facility] LAB HEMETOLOGY METHOD 12/12/2024 2:07 PM EDT [facility] Basophils Absolute 0.02 0.00 - 0.20 K/[facility] LAB HEMETOLOGY METHOD 12/12/2024 2:07 PM EDT [facility] Immature Granulocytes Absolute 0.01 0.00 - 0.03 K/[facility] LAB HEMETOLOGY METHOD 12/12/2024 2:07 PM EDT [facility] Blood Venous blood specimen / Unknown Venipuncture / Unknown 12/12/2024 11:46 AM EDT 12/12/2024 11:46 AM EDT us Flora Dominguez MD LAB BLOOD ORDERABLES Final Resul t [facility] [address] [place] [address], * Vitamin D 25 hydroxy (12/12/2024 11:46 AM EDT) Vit D, 25-Hydroxy 49.1 30.0 - 80.0 ng/mL LAB CHEMISTRY METHOD 12/12/2024 4:59 PM EDT [facility] Blood Venous blood specimen / Unknown Venipuncture / Unknown 12/12/2024 11:46 AM EDT 12/12/2024 11:46 AM EDT us Flora Dominguez MD LAB BLOOD ORDERABLES Final Resul t [facility] [address] [place] [address], * (ABNORMAL) Comprehensive metabolic panel (12/12/2024 11:46 AM EDT) Sodium 136 133 - 145 mmol/L LAB CHEMISTRY METHOD 12/12/2024 4:06 PM [facility] Potassium 3.8 3.5 - 5.5 mmol/L LAB CHEMISTRY METHOD 12/12/2024 4:06 PM [facility] Chloride 99 96 - 110 mmol/L LAB CHEMISTRY METHOD 12/12/2024 4:06 PM [facility] CO2 33(H) 21 - 32 mmol/L LAB CHEMISTRY METHOD 12/12/2024 4:06 PM [facility] Anion Gap 4 3 - 11 LAB CHEMISTRY METHOD 12/12/2024 4:06 PM [facility] Glucose 82 70 - 100 mg/dL LAB CHEMISTRY METHOD 12/12/2024 4:06 PM [facility] BUN 9 5 - 25 mg/dL LAB CHEMISTRY METHOD 12/12/2024 4:06 PM [facility] Creatinine 0.62 0.50 - 1.10 mg/dL LAB CHEMISTRY METHOD 12/12/2024 4:06 PM [facility] eGFR 103 >=60 mL/min/1. 73m2 LAB CHEMISTRY METHOD 12/12/2024 4:06 PM [facility] Comment:Calculation based on the Chronic Kidney Disease Epidemiology Collaboration (CKD-EPI) equation refit without adjustment for race. BUN/Creatinine Ratio 14.5 LAB CHEMISTRY METHOD 12/12/2024 4:06 PM [facility] Calcium 9.3 8.5 - 10.5 mg/dL LAB CHEMISTRY METHOD 12/12/2024 4:06 PM [facility] AST (SGOT) 18 10 - 42 unit/L LAB CHEMISTRY METHOD 12/12/2024 4:06 PM EDT [facility] ALT (SGPT) 26 10 - 60 unit/L LAB CHEMISTRY METHOD 12/12/2024 4:06 PM EDT [facility] Alkaline Phosphatase 91 42 - 121 unit/L LAB CHEMISTRY METHOD 12/12/2024 4:06 PM EDT [facility] Total Protein 7.0 6.0 - 8.0 g/dL LAB CHEMISTRY METHOD 12/12/2024 4:06 PM EDT [facility] Albumin 4.4 3.2 - 5.0 g/dL LAB CHEMISTRY METHOD 12/12/2024 4:06 PM EDT [facility] Total Bilirubin 0.3 0.0 - 1.4 mg/dL LAB CHEMISTRY METHOD 12/12/2024 4:06 PM EDT [facility] Blood Venous blood specimen / Unknown Venipuncture / Unknown 12/12/2024 11:46 AM EDT 12/12/2024 11:46 AM EDT us Flora Dominguez MD LAB BLOOD ORDERABLES Final Resul t [facility] [address] [place] [address], [place] [phone] * XR Lumbar Spine 4+ Views (11/11/2024 2:47 PM EDT) Anatomical Region Laterality Modality Spine, L-spine Radiographic Marii ging 11/11/2024 3:13 PM EDT Impressions 11/11/2024 3:14 PM EDT Multilevel degenerative changes, mildly progressed from 2020. -------- FINAL REPORT -------- Dictated By: Leena Curry Dictated Date: 11/11/2024 15:13 ET Assigned Physician: Leena Curry Reviewed and Electronically Signed By: Leena Curry Signed Date: 11/11/2024 15:14 ET Workstation ID: [id number] Transcribed By: Self Edit Transcribed Date: 11/11/2024 [...] Signed Date: 11/11/2024 15:14 ET Workstation ID: [id number] Transcribed By: Self Edit Transcribed Date: 11/11/2024 15:13 ET [facility] Toma Bernard Wilma MANZANO IMG XR PROCEDURES [...] Signed Date: 11/11/2024 15:13 ET Workstation ID: [id number] Transcribed By: Self Edit Transcribed Date: 11/11/2024 [...] Signed Date: 11/11/2024 15:13 ET Workstation ID: [id number] Transcribed By: Self Edit Transcribed Date: 11/11/2024 15:10 ET [facility] Toma Bernard Wilma MANZANO IMG XR PROCEDURES [...] - negative us Radiology Results Historical MD HERBERT XR PROCEDURE S Final Result * Pap smear (06/18/2020) 06/18/2020 Narrative HISTORICAL TESTING LAB RESULTING AGENCY - 06/25/2020 11:41 AM EST [id number] THINPREP PAP, IMAGED: NEGATIVE FOR SQUAMOUS INTRAEPITHELIAL [...] HX 2016 ASCUS, NEG HPV, Z12.4 Kenna Hernandez CNM LAB CYTOLOGY ORDERABLES Final Result HISTORICAL TESTING LAB RESULTING AGENCY * Colonoscopy (11/15/2016) Colonoscopy negative Anatomical Region Laterality Modality Other Historical Provider HEALTH MAINTENANCE Final Result from Last 3 Months or Most Recently Relevant to Health Maintenance Insurance [facility] Care Teams Can Inspector Relationship Specialty Start Date End Date Flora Dominguez MD [address] [place] [phone] PCP - General Internal Medicine 04/07/24
--- OUTSIDE RECORDS SUMMARY | 2025-01-26 16:31 | XMS_ITS | Encounter Summary ---
Author Organization [facility] Address [address] [place] [address] [address] [place] [address] Care Team Providers Care Last Pattern Grader Name Role Phone Unavailable Primary Care Provider Unavailabl e Reason for Visit * Reason Onset Date Comments Prior Authorization 05/17/2023 Encounter Details Date Type Department Care Team (Late Contact Info) Description 05/17/2023 Telephone [facility] ADULT DENTAL [address] [place] [address] Andria Baker DDS Prior Authorization Social History Tobacco Use Types Packs/Day Years [...] encounter Miscellaneous Notes * Telephone Encounter - Keily Aguilar - 05/17/2023 12:50 PM EST Patient called in stating that she contacted the insurane and they told her that a descriptive notewas needed explaining why bridge was needed and code for denture should be used According to what patient is explaining DR documented in this encounter Plan of Treatment Upcoming Encounters Date Type Department Care Team (Late st Contact Info) Description 04/09/2025 10:00 AM EST Office Visit [facility] ADULT DENTAL [address] [place] [address] [place] documented as of this encounter Visit Diagnoses Not on filedocumented in this encounter
--- OUTSIDE RECORDS SUMMARY | 2025-01-26 16:31 | XMS_ITS | Clinical Summary ---
Author Organization [employer] Address [address] [place] [address] [address] [place] [address] Care Team Providers Care House Coordinator Name Role Phone Unavailable Primary Care Provider [...] Mass Index - - Plan of Treatment Upcoming Encounters Date Type Department Care Team ([facility] st Contact Info) Description 04/09/2025 10:00 AM EST Office Visit [facility] AD[facility] [address] [place] [address] [place] Health Maintenance Due Date Last Done Comments [...] , 08/10/2021 Dental Prophylaxis 11/17/2023 05/17/2023, 08/31/2021 Dental X-Ray: Full Mouth 08/11/2024 08/10/2021 COVID-19 Vaccine ( season) 2025 05/09/2021, 07/27/2020, 07/06/2020 Influenza Vaccine (#1) 2025 03/15/2022 Tobacco Screening [...] Most Recently Relevant to Health Maintenance Insurance * Guarantor: Nadeen Valente Account Type Relation to Patient Date of Phone Billing Address Personal/[place] [address]
--- OUTSIDE RECORDS SUMMARY | 2025-01-26 16:31 | XMS_ITS | Encounter Summary ---
Author Organization [employer] Address [address] [place] [address] [address] [place] [address] Care Team Providers Care Polish Maker Name Role Phone Unavailable Primary Care Provider Unavailabl e Encounter Details Date Type Department Care Team (Latest Contact Info) Description 08/10/2021 Abstract [facility] Dental, Provider, DDS Social History Tobacco Use Types Packs/Day Years Used Date Smoking Tobacco: Never Assessed Comments Unknown Sex and Gender Information Value Date Recorded Sex Assigned at Female 03/20/2022 10:23 AM EDT Legal Sex Female 10:23 AM EDT Gender Identity Female 03/20/2022 10:23 AM EDT Sexual Orientation Straight 03/20/2022 10 :23 AM EDT documented as of this encounter Plan of Treatment Upcoming Encounters Date Type Department Care Team (Late st Contact Info) Description 04/09/2025 10:00 AM EST Office Visit [facility] ADULT D[facility] [address] [place] [address] [place] documented as of this encounter Visit Diagnoses Not on filedocumented in this encounter
== END 2025-01-26 14:47 | disposition home or self-care (01) ==
LOC: HO.PMC 14:09
PROVIDERS: PCP Internal Medicine; Visit Provider Nurse Practitioner Family
DX: M54.12 Radiculopathy, cervical region (principal); M50.30 Other cervical disc degeneration, unspecified cervical region; M47.812 Spondylosis without myelopathy or radiculopathy, cervical region; M54.50 Low back pain, unspecified; G89.29 Other chronic pain; M51.369 Other intervertebral disc degeneration, lumbar region without mention of lumbar back pain or lower extremity pain; M47.817 Spondylosis without myelopathy or radiculopathy, lumbosacral region; M54.16 Radiculopathy, lumbar region; M79.671 Pain in right foot; M19.071 Primary osteoarthritis, right ankle and foot
CPT/HCPCS: 99214

== ENCOUNTER → 2025-02-23 17:03 | Outpatient (BNV) | payer OTHER, SELFPAY | PROVIDERS: PCP Internal Medicine; Visit Provider Radiology Diagnostic Radiology | DX: M54.16 Radiculopathy, lumbar region (principal) | CPT/HCPCS: 72148 ==

== ENCOUNTER 2025-02-23 17:07 | Outpatient (REF) | payer OTHER, SELFPAY ==
--- NOTE | ~2025-02-23 | MR_ITS ---
CLINICAL HISTORY: M54.16 - Radiculopathy, lumbar region MR lumbar spine without gadolinium Comparison: None Findings: Normal alignment. No acute fracture or pathologic bone lesion. Cauda equina and conus medullaris within normal limits. No significant degenerative change. No stenoses. Paraspinous musculature intact. There is no significant annular bulge or focal disc herniation. The foramina are patent. There is a small annular tear along the right subarticular aspect of the L4-5 disc. The rest of the discs demonstrate no acute abnormalities. The rest of the neural foramina are patent. IMPRESSION: There is a small annular tear along the right subarticular aspect of the L4-5 disc. The examination is otherwise unremarkable. This document has been electronically signed by: Connor Garcia MD on 02/25/2025 05:37:03
--- OUTSIDE RECORDS SUMMARY | 2025-02-23 18:38 | XMS_ITS | Clinical Summary ---
Author Organization Patient Business Ser [facility] Address [address] [place] [address] Care Team Providers Care Director Of Patient Care Name Role Phone Flora Dominguez MD Primary Care Provider Allergies No known active allergies Medications multivitamin [...] 12/04/2024 3:30 PM EDT Office Visit Adult Medicine [address] [phone] Flora Dominguez MD Depressive disorder (Primary Dx); Mixed hyperlipidemia; Vitamin D deficiency; Acne, unspecified acne type from Last 3 Months Immunizations Immunization Administration Dates Next Due Hepatitis B (Qnyuauf-L-Rjrmy , Recombivax HB-Adult) 19yo and older 07/30/2007,12/20/2006,11/14/2006 [...] 3:00 PM EST Office Visit Adult Medicine [address] [phone] Flora Dominguez MD [address] [place] [address] Health Maintenance Due Date Last Done Comments [...] 12/12/2024 11:46 AM EDT Vitamin D deficiency SCREENING MAMMOGRAPHY BI 2-VIEW BREAST INC CAD [...] LAB CHEMISTRY METHOD 12/12/2024 4:59 PM EDT [facility] Blood Venous blood specimen / Unknown Venipuncture / Unknown 12/12/2024 11:46 AM EDT 12/12/2024 11:46 AM EDT us Flora Dominguez MD LAB BLOOD ORDERABLES Final Resul t [facility] [address] [place] [address], * (ABNORMAL) Lipid panel with reflex to direct LDL (12/12/2024 11:46 AM EDT) Cholesterol 220(H) 0 - 200 mg/dL LAB CHEMISTRY METHOD 12/12/2024 4:06 PM EDT [facility] Triglycerides 117 0 - 150 mg/dL LAB CHEMISTRY METHOD 12/12/2024 4:06 PM EDT [facility] HDL 62 >=40 mg/dL LAB CHEMISTRY METHOD 12/12/2024 4:06 PM EDT [facility] LDL Calculated 135(H) 0 - 100 mg/dL LAB CHEMISTRY METHOD 12/12/2024 4:06 PM EDT [facility] VLDL Cholesterol Anthony 23.4 mg/dL LAB CHEMISTRY METHOD 12/12/2024 4:06 PM EDT [facility] Non HDL Chol. (LDL+VLDL) 158(H) <145 mg/dL LAB CHEMISTRY METHOD 12/12[facility]24 [facility] Chol/HDL Ratio 3.5 0.0 - 4.4 LAB CHEMISTRY METHOD 12/12/2024 4:06 PM T [facility] Blood Venous blood specimen / Unknown Venipuncture / Unknown 12/12/2024 11:46 AM EDT 12/12/2024 11:46 AM EDT us Flora Dominguez MD LAB BLOOD ORDERABLES Final Resul t [facility] [address] [place] [address], * CBC auto differential (12/12/2024 11:46 AM EDT) WBC 5.2 4.8 - 10.8 K/mcL LAB HEMETOLOGY METHOD 12/12/2024 2:07 PM EDT [facility] RBC 4.80 3.80 - 4.80 M/mcL LAB HEMETOLOGY METHOD 12/12/2024 2:[facility] Hemoglobin 13.2 11.5 - 16.0 g/dL LAB HEMETOLOGY METHOD 12/12/2024 2:07 PM EDT [facility] Hematocrit 41.1 35.0 - 47.0 % LAB HEMETOLOGY METHOD 12/12/2024 2:07 [facility] MCV 85.6 79.0 - 98.0 FL LAB HEMETOLOGY METHOD 12/12/2024 2:07 PM [facility] MCH 27.5 27.0 - 32.0 pcg LAB HEMETOLOGY METHOD 12/12/2024 2:07 [facility] MCHC 32.1 32.0 - 37.0 g/dL LAB HEMETOLOGY METHOD 12/12/2024 2:07 PM [facility] RDW 12.9 11.0 - 15.0 % LAB HEMETOLOGY METHOD 12/12/2024 2:07 PM [facility] Platelets 160 130 - 400 K/mcL LAB HEMETOLOGY METHOD 12/12/2024 2:07 PM [facility] MPV 10.3 7.0 - 11.0 FL LAB HEMETOLOGY METHOD 12/12/2024 2:07 PM [facility] NRBC 0.0 <1.0 % LAB HEMETOLOGY METHOD 12/12/2024 2:07 PM [facility] NRBC Absolute 0.00 <0.10 K/mcL LAB HEMETOLOGY METHOD 12/12/2024 2:07 PM [facility] Neutrophils Relative 62.7 % LAB HEMETOLOGY METHOD 12/12/2024 2:07 PM [facility] Lymphocytes Relative 28.1 % LAB HEMETOLOGY METHOD 12/12/2024 2:07 PM [facility] Monocytes Relative 6.9 % LAB HEMETOLOGY METHOD 12/12/2024 2:07 PM [facility] Eosinophils Relative 1.7 % LAB HEMETOLOGY METHOD 12/12/2024 2:07 PM EDT [facility] Basophils Relative 0.4 % LAB HEMETOLOGY METHOD 12/12/2024 2:07 PM EDT [facility] Immature Granulocytes Relative 0.2 % LAB HEMETOLOGY METHOD 12/12/2024 2:07 PM EDT [facility] Neutrophils Absolute 3.29 1.50 - 7.00 K/mcL LAB HEMETOLOGY METHOD 12/12/2024 2:07 PM EDT [facility] Lymphocytes Absolute 1.47 1.00 - 5.00 K/mcL LAB HEMETOLOGY METHOD 12/12/2024 2:07 PM EDT [facility] Monocytes Absolute 0.36 0.20 - 1.00 K/mcL LAB HEMETOLOGY METHOD 12/12/2024 2:07 PM EDT [facility] Eosinophils Absolute 0.09 0.00 - 0.50 K/mcL LAB HEMETOLOGY METHOD 12/12/2024 2:07 PM EDT [facility] Basophils Absolute 0.02 0.00 - 0.20 K/mcL LAB HEMETOLOGY METHOD 12/12/2024 2:07 PM EDT [facility] Immature Granulocytes Absolute 0.01 0.00 - 0.03 K/mcL LAB HEMETOLOGY METHOD 12/12/2024 2:07 PM EDT [facility] Blood Venous blood specimen / Unknown Venipuncture / Unknown 12/12/2024 11:46 AM EDT 12/12/2024 11:46 AM EDT us Flora Dominguez MD LAB BLOOD ORDERABLES Final Resul t [facility] [address] [place] [address], * Vitamin D 25 hydroxy (12/12/2024 11:46 AM EDT) Pathologist [facility] Vit D, 25-Hydroxy 49.1 30.0 - 80.0 ng/mL LAB CHEMISTRY METHOD 12/12/2024 4:59 PM [facility] Blood Venous blood specimen / Unknown Venipuncture / Unknown 12/12/2024 11:46 AM EDT 12/12/2024 11:46 AM EDT us Flora Dominguez MD LAB BLOOD ORDERABLES Final Resul t [facility] [address] [place] [address], * (ABNORMAL) Comprehensive metabolic panel (12/12/2024 11:46 AM EDT) [facility] Sodium 136 133 - 145 mmol/L LAB CHEMISTRY METHOD 12/12/2024 4:06 PM [facility] Potassium 3.8 3.5 - 5.5 mmol/L LAB CHEMISTRY METHOD 12/12/2024 4:06 PM [facility] Chloride 99 96 - 110 mmol/L LAB CHEMISTRY METHOD 12/12/2024 4:06 PM [facility] CO2 33(H) 21 - 32 mmol/L LAB CHEMISTRY METHOD 12/12/2024 4:06 PM [facility] Anion Gap 4 3 - 11 LAB CHEMISTRY METHOD 12/12/2024 4:06 PM [facility] Glucose 82 70 - 100 mg/dL LAB CHEMISTRY METHOD 12/12/2024 4:06 PM [facility] BUN 9 5 - 25 mg/dL LAB CHEMISTRY METHOD 12/12/2024 4:06 PM [facility] Creatinine 0.62 0.50 - 1.10 mg/dL LAB CHEMISTRY METHOD 12/12/2024 4:06 PM [facility] eGFR 103 >=60 mL/min/1. 73m2 LAB CHEMISTRY METHOD 12/12/2024 4:06 PM [facility] Comment:Calculation based on the Chronic Kidney Disease Epidemiology Collaboration (CKD-EPI) equation refit without adjustment for race. BUN/Creatinine Ratio 14.5 LAB CHEMISTRY METHOD 12/12/2024 4:06 PM [facility] Calcium 9.3 8.5 - 10.5 mg/dL LAB CHEMISTRY METHOD 12/12/2024 4:06 PM [facility] AST (SGOT) 18 10 - 42 unit/L LAB CHEMISTRY METHOD 12/12/2024 4:06 PM [facility] ALT (SGPT) 26 10 - 60 unit/L LAB CHEMISTRY METHOD 12/12/2024 4:06 PM [facility] Alkaline Phosphatase 91 42 - 121 unit/L LAB CHEMISTRY METHOD 12/12/2024 4:06 PM [facility] Total Protein 7.0 6.0 - 8.0 g/dL LAB CHEMISTRY METHOD 12/12/2024 4:06 PM [facility] Albumin 4.4 3.2 - 5.0 g/dL LAB CHEMISTRY METHOD 12/12/2024 4:06 PM [facility] Total Bilirubin 0.3 0.0 - 1.4 mg/dL LAB CHEMISTRY METHOD 12/12/2024 4:06 PM [facility] Blood Venous blood specimen / Unknown Venipuncture / Unknown 12/12/2024 11:46 AM EDT 12/12/2024 11:46 AM EDT us Flora Dominguez MD LAB BLOOD ORDERABLES Final Resul t [facility] [address] [place] [address], * SCREENING MAMMOGRAPHY BI 2-VIEW BREAST INC [...] - negative us Radiology Results Historical MD IMG XR PROCEDURE S Final Result * Pap smear (06/18/2020) 06/18/2020 Narrative HISTORICAL TESTING LAB RESULTING AGENCY - 06/25/2020 11:41 AM EST [id number] THINPREP PAP, IMAGED: NEGATIVE FOR SQUAMOUS INTRAEPITHELIAL [...] Most Recently Relevant to Health Maintenance Insurance [facility] Care Teams Director Of Patient Care Relationship Specialty Start Date End Date Flora Dominguez MD [address] [place] [phone] PCP - General Internal Medicine 04/07/24
--- OUTSIDE RECORDS SUMMARY | 2025-02-23 18:38 | XMS_ITS | Clinical Summary ---
Author Organization [employer] Address [address] [place] [address] 7[address] [place] [address] Care Team Providers Care Inspector And Adjuster Golf Club Head Name Role Phone Unavailable Primary Care Provider [...] Upcoming Encounters Date Type Department Care Team ([facility] st Contact Info) Description 04/09/2025 10:00 AM EST Office Visit [facility] ADULT D[facility]AL [address] [place] [address] [place] Health Maintenance Due Date Last [...] Billing Address Personal/[place] [id number]
--- OUTSIDE RECORDS SUMMARY | 2025-02-23 18:38 | XMS_ITS | Encounter Summary ---
Author Organization [employer] Address [address] [place] [address] 7 [place] [address] Care Team Providers Care Science Manager Name Role Phone Unavailable Primary Care Provider Unavailabl e Encounter Details Date Type Department Care Team (Late Contact Info) Description 06/14/2023 Telephone [facility] ADULT DENTAL [address] [place] [address] Barbara Walters DDS [address] [place] [address] Social History Tobacco Use Types Packs/Day Years [...] Description 04/09/2025 10:00 AM EST Office Visit [facility] ADULT DENTAL [address] [place] [address] [place] documented as of this encounter Visit Diagnoses Not on filedocumented in this encounter
--- OUTSIDE RECORDS SUMMARY | 2025-02-23 18:38 | XMS_ITS | Encounter Summary ---
Author Organization [employer] Address [address] [place] [address] 7 [place] [address] Care Team Providers Care [employer] Principal Name Role Phone Unavailable Primary Care Provider Unavailabl e Reason for Visit * Reason Onset Date Comments appt for root canal 03/26/2023 Encounter Details Date Type Department Care Team (Late Contact Info) Description 03/26/2023 Telephone [facility] ADULT DENTAL [address] [place] [address] Barbara Walters DDS [address] [place] [address] appt for root canal Social History Tobacco [...] Description 04/09/2025 10:00 AM EST Office Visit [facility] ADULT DENTAL [address] [place] [address] [place] documented as of this encounter Visit Diagnoses Not on filedocumented in this encounter
--- OUTSIDE RECORDS SUMMARY | 2025-02-23 18:38 | XMS_ITS | Encounter Summary ---
Author Organization [employer] Address [address] [place] [address] 7 [place] [address] Care Team Providers Care Director Of Content And Programming Name Role Phone Unavailable Primary Care Provider Unavailabl e Encounter Details Date Type Department Care Team (Latest Contact Info) Description 08/10/2021 Abstract [facility] CONVERSIONS Dental, Provider, DDS Social History [...] 04/09/2025 10:00 AM EST Office Visit [facility] ADULT DENTAL [address] [place] [address] [place] documented as of this encounter Visit Diagnoses Not on filedocumented in this encounter
--- OUTSIDE RECORDS SUMMARY | 2025-02-23 18:38 | XMS_ITS | Encounter Summary ---
Author Organization [facility] [facility] Address [address] [place] [address] 7 [place] [address] Care Team Providers Care Protective Officer Name Role Phone Unavailable Primary Care Provider Unavailabl e Reason for Visit * Reason Onset Date Comments Prior Authorization 05/17/2023 Encounter Details Date Type Department Care Team (Late Contact Info) Description 05/17/2023 Telephone [facility] ADULT DENTAL [address] [place] [address] Andria Baker DDS Prior Authorization Social History [...] Description 04/09/2025 10:00 AM EST Office Visit [facility] ADULT DENTAL [address] [place] [address] [place] documented as of this encounter Visit Diagnoses Not on filedocumented in this encounter
== END 2025-02-23 17:08 | disposition home or self-care (01) ==
LOC: HO.MRI 17:07
PROVIDERS: PCP Internal Medicine; Visit Provider Nurse Practitioner Family
DX: M54.16 Radiculopathy, lumbar region (principal); M51.369 Other intervertebral disc degeneration, lumbar region without mention of lumbar back pain or lower extremity pain; M47.817 Spondylosis without myelopathy or radiculopathy, lumbosacral region
CPT/HCPCS: 72148

== ENCOUNTER 2025-03-10 06:10 | Outpatient (REF) | payer OTHER, SELFPAY ==
--- NOTE | ~2025-03-10 | FL_ITS ---
EXAMINATION: FL GUIDANCE ONLY HISTORY: M47.812 - Spondylosis without myelopathy or radiculopathy, cervical region COMPARISON: None available. TECHNIQUE: Fluoroscopy time: 0.8 minutes. Cumulative Dose: 1.90 mGy. DAP: 4 4.17 uGym2 Images: 8. FINDINGS: Fluoroscopic spot films of the cervical spine demonstrate needles and contrast material in place at 3 levels bilaterally. FL/FL guidance in treatment room IMPRESSION: Fluoroscopy during procedure. Please see procedure report for additional information. Electronically signed by: Vishal Tay MD 03/11/2025 03:03 PM EDT
--- OUTSIDE RECORDS SUMMARY | 2025-03-10 06:13 | XMS_ITS | Encounter Summary ---
Author Organization [employer] Address [address] [place] [address] 7 [place] [address] Care Team Providers Care Binder Cutter Name Role Phone Unavailable Primary Care Provider Unavailabl e Encounter Details Date Type Department Care Team (Latest Contact Info) Description 08/10/2021 Abstract [facility] CONVERSIONS Dental, Provider, DDS Social History [...] 04/09/2025 10:00 AM EST Office Visit [facility] ADULT DENTAL [address] [place] [address] [place] documented as of this encounter Visit Diagnoses Not on filedocumented in this encounter
--- OUTSIDE RECORDS SUMMARY | 2025-03-10 06:13 | XMS_ITS | Clinical Summary ---
Author Organization [employer] Address [address] [place] [address] 7t [place] [address] Care Team Providers Care Hand Straightener Name Role Phone Unavailable Primary Care Provider [...] Upcoming Encounters Date Type Department Care Team ([facility] st Contact Info) Description 04/09/2025 10:00 AM EST Office Visit [facility] ADULT DENTAL [address] [place] [address] [place] Health Maintenance Due Date Last [...] Billing Address Personal/[place] [address]
--- OUTSIDE RECORDS SUMMARY | 2025-03-10 06:13 | XMS_ITS | Encounter Summary ---
Author Organization [employer] Address [address] [place] [address] 7 [place] [address] Care Team Providers Care Hanger Name Role Phone Unavailable Primary Care Provider Unavailabl e Encounter Details Date Type Department Care Team (Late Contact Info) Description 06/14/2023 Telephone [facility] ADULT DENTAL [address] [place] [address] Barbara Walters DDS [address] [place] [address] Social History Tobacco Use Types Packs/Day Years [...] Description 04/09/2025 10:00 AM EST Office Visit [facility] ADULT DENTAL [address] [place] [address] [place] documented as of this encounter Visit Diagnoses Not on filedocumented in this encounter
--- OUTSIDE RECORDS SUMMARY | 2025-03-10 06:13 | XMS_ITS | Encounter Summary ---
Author Organization [employer] Address [address] [place] [address] 7 [place] [address] Care Team Providers Care And Taxi Instructor Bus Trolley Name Role Phone Unavailable Primary Care Provider Unavailabl e Reason for Visit * Reason Onset Date Comments appt for root canal 03/26/2023 Encounter Details Date Type Department Care Team (Late Contact Info) Description 03/26/2023 Telephone [facility] ADULT DENTAL [address] [place] [address] Barbara Walters DDS [address] [place] [address] appt for root canal Social History Tobacco [...] 10:00 AM EST Office Visit [facility] ADULT DENTAL [address] [place] [address] [place] documented as of this encounter Visit Diagnoses Not on filedocumented in this encounter
--- OUTSIDE RECORDS SUMMARY | 2025-03-10 06:13 | XMS_ITS | Encounter Summary ---
Author Organization [facility] [facility] Address [address] [place] [address] 7 [place] [address] Care Team Providers Care Neurology Physician Assistant Name Role Phone Unavailable Primary Care Provider Unavailabl e Reason for Visit * Reason Onset Date Comments Prior Authorization 05/17/2023 Encounter Details Date Type Department Care Team (Late Contact Info) Description 05/17/2023 Telephone [facility] ADULT DENTAL [address] [place] [address] Andria Baker DDS Prior Authorization Social History [...] 04/09/2025 10:00 AM EST Office Visit [facility] ADULT DENTAL [address] [place] [address] [place] documented as of this encounter Visit Diagnoses Not on filedocumented in this encounter
== END 2025-03-10 06:11 | disposition home or self-care (01) ==
LOC: CF 06:10
PROVIDERS: Visit Provider Anesthesiology
DX: M47.812 Spondylosis without myelopathy or radiculopathy, cervical region (principal)
CPT/HCPCS: 64490; 64491; J2003; J2795; Q9967

== ENCOUNTER 2025-03-10 08:20 | Outpatient (AMB) | payer OTHER, SELFPAY ==
--- NOTE | 2025-03-10 08:21 | A.OFFVIS_ITS ---
Vital Signs 03/10/25 08:24 03/10/25 08:57 Height 5 ft 4 in Weight 138 lb BMI 23.7 BP 109/58 L 119/55 L Blood Pressure Location Lt brachial Lt brachial Position Sitting Sitting Respiration 16 16 Pulse 69 86 Pulse Source Pulse Oximeter Pulse Oximeter Pulse Oximetry (%) 100 91 L Oxygen Delivery Method Room Air Room Air Intake Visit Reasons: Bilateral Diagnostic C4-C5-C6 MBB Allergies No Known Allergies Allergy (Verified 01/26/25 14:14) PFSH Medical History Vitamin D deficiency Foot pain Neck pain Multiple thyroid nodules Depressive disorder Acne Stress Paget's disease of bone Hyperlipidemia Social History Patient Tobacco Use Status: Never used Tobacco Physical Exam Vital Signs: Last Vital Signs Pulse 86 03/10/25 08:57 Resp 16 03/10/25 08:57 BP 119/55 L 03/10/25 08:57 Pulse Ox 91 L 03/10/25 08:57 Oxygen Delivery Method Room Air 03/10/25 08:57 BMI result Body Mass Index 23.7 Assessment & Plan Assessment & Plan (1) Cervical spondylosis: Code(s): M47.812 - Spondylosis without myelopathy or radiculopathy, cervical region Category: Medical Plan Diagnostic medial branch block C4- C5- C6 bilateral. ? ?Informed consent was explained to the patient. All questions were explained and? answered.? The patient was taken inside the operating room where he was p ositioned prone on the operating table. Time-out was performed delineating correct site, side, the nature of the procedure, patient's allergy, . All operating room staff was participating in OR time-out procedure. ? ? The the upper back and posterior neck was prepped with ChloraPrep and draped with sterile towels.? C-arm was brought over the operating field and sq picture of C4- C5- C6 vertebra were delineated on the screen.? Point of interest were delineated as lateral masses of the vertebras as above with the bilateral waist of each lateral mass as the target of the final needle position.? The projection of the point of interest to the skin were injected with the small amount of local anesthetic lidocaine 2% mixed with ropivacaine 0.5% 1-1 approximately 1 cc.? After that three 22 gauge 3.5 inch spinal needles were driven sequentially to the points of interest in tunnel vision fashion first on the right and after that on the left.. Lateral view demonstrating appropriate needles positioned. At the point of interests the needle was injected with small amount of the contrast.? The injection of the contrast did not demonstrate any intravascular or intrathecal spread of the contrast.? After that injection of the?ropivacaine 0.5%-1 cc of was performed at each needle location.?? after that the needles were removed and Bandaids were applied. Patient tolerated the procedure well she was taken outside of the operating room to recovery room. Orders: Orders FL guidance in treatment room Today M47.812 - Spondylosis without myelopathy or radiculopathy, cervical region Coding Level of Care Code Procedure Only Diagnoses Cervical spondylosis M47.812
[2025-03-10 08:24] VITALS: BP 109/58; PULSE 69; RESP 16; O2SAT 100; BMI 23.7
--- OUTSIDE RECORDS SUMMARY | 2025-03-10 08:27 | XMS_ITS | Encounter Summary ---
Author Organization [facility] Address [address] [place] [address] Care Team Providers Care Demand Manager Name Role Phone Flora Dominguez MD Primary Care Provider [phone] Reason for Visit * Reason Comments E-prescribe Rx Request Encounter Details Date Type Department Care Team Description 03/16/2024 Refill Adult Medicine [address] [address] Flora Dominguez MD [address] [place] [id number] E-prescribe Rx Request Social History Tobacco Use Types Packs/Day Years Used Date Smoking Tobacco: Never Smokeless Tobacco: Never Alcohol Use Standard Drinks/Week Comments No 0 (1 standard drink = 0.6 oz pur e alcohol) Intimate Partner Violence Answer Date R ecorded Within the last year, have y ou been afraid of your partner or ex-partner? No 06/18/2020 Within the last year, have y ou been humiliated or emotionally abused in other ways by your partner or ex-partner? No Within the last year, have y ou been kicked, hit, slapped, or otherwise physically hurt by your partner or ex-partner? No 06/18/2020 Within the last year, have y ou been raped or forced to have any kind of sexual activity by your partner or ex-partner? No 06/18/2020 Sex Assigned at Date Recorded Not on file Job Start Date Occupation Industry Not on file Not on file Not on file documented as of this encounter Miscellaneous Notes * Telephone Encounter - Tanya Hargrove M.A. - 03/19/2024 11:03 AM EDT Last office visit 06/08/23 Request placed for pt to call for an appt Lab Results Component Value Date 25OHD 64 06/08/2023 Lab Results Component Value Date ALB 3.9 06/08/2023 SGOT 15 06/08/2023 SGPT TNP 06/08/2023 TBILI 0.3 06/08/2023 ALKPHOS 85 06/08/2023 TP 7.1 06/08/2023 * Telephone Encounter - Keke Ascencio - 03/18/2024 12:03 PM EDT Patient would like script to be: E-PRESCRIBED/FAXED TO PHARMACY WHEN WAS THE PATIENT'S LAST APPOINTMENT IN ADULT MEDICINE? 06/08/23 WHEN WAS THE LAST TIME THE PATIENT SAW THEIR PCP? Same as above Does patient have an upcoming appointment? NO unable to schedule due to limited conversion access (THE MEDICATION REQUESTED IS ON THE MED LIST ABOVE) All of the medications requested were on the CURRENT MEDS list Did you check the Pharmacy information above?: YES Patient wants: 90 -day supply Is this a mail order prescription request ? NO If the refill is from a FAXED refill request what is the RX # listed on the fax? N/A Patients current insurance carrier is: No billing information found for this encounter. Insurance ID #: No Subscriber Number on File documented in this encounter Plan of Treatment Not on file documented as of this encounter Visit Diagnoses Not on filedocumented in this encounter Care Teams Demand Manager Relationship Specialty Start Date End Date Flora Dominguez MD [address] [place] [address] PCP - General Internal Medicine 11/24/21 documented as of this encounter
--- OUTSIDE RECORDS SUMMARY | 2025-03-10 08:27 | XMS_ITS | Encounter Summary ---
Author Organization [facility] Address [address] [place] [address] Care Team Providers Care Roll On Worker Name Role Phone Doris Chopra MD Primary Care Provider Eze Cummings MD Primary Care Provider Flora Bernstein MD Primary Care Provider [phone] Encounter Details Date Type Department Care Team Description 08/10/2015 Telephone Adult Medicine [address] [address] Veto Rodriguez MD Social History Tobacco Use Types Packs/Day Years [...] encounter Miscellaneous Notes * Telephone Encounter - Doris Chopra MD - 08/11/2015 12:19 PM EDT Ok thanks Dr Rodriguez * Telephone Encounter - Veto Rodriguez MD - 08/10/2015 5:26 PM EDT This patient did not come in for endocrine evaluation today documented in this encounter Plan of Treatment Not on file documented as of this encounter Visit Diagnoses Not on filedocumented in this encounter Care Teams Roll On Worker Relationship Specialty Start Date End Date Doris Chopra MD PCP - General Internal Medicine 05/11/15 08/30/20 Eze Taylor MD PCP - General Internal Medicine 08/31/20 11/23/21 Flora Dominguez MD [address] [place] [address] PCP - General Internal Medicine 11/24/21 documented as of this encounter
--- OUTSIDE RECORDS SUMMARY | 2025-03-10 08:27 | XMS_ITS | Encounter Summary ---
Author Organization [facility] Address [address] [place] [address] Care Team Providers Care Physical Therapy Director Name Role Phone Eric Jay MD Primary Care Provider Unavail Doris Gonzales MD Primary Care Provider Eze Cummings MD Primary Care Provider Flora Bernstein MD Primary Care Provider [phone] Encounter Details Date Type Department Care Team Description 05/11/2011 SCAN Medical Records [address] [place] [id number] Abstract, Provider Social History Tobacco Use Types Packs/Day Years Used Date Smoking Tobacco: Never Alcohol Use Standard Drinks/Week Comments [...] on file documented as of this encounter Plan of Treatment Not on file documented as of this encounter Visit Diagnoses Not on filedocumented in this encounter Care Teams Physical Therapy Director Relationship Specialty Start Date End Date Eric Jay MD PCP - General 10/25/06 05/10/15 Doris Chopra MD PCP - General Internal Medicine 05/11/15 08/30/20 Eze Taylor MD PCP - General Internal Medicine 08/31/20 11/23/21 Flora Dominguez MD [address] [place] [address] PCP - General Internal Medicine 11/24/21 documented as of this encounter
--- OUTSIDE RECORDS SUMMARY | 2025-03-10 08:27 | XMS_ITS | Encounter Summary ---
Author Organization [facility] Address [address] [place] [address] Care Team Providers Care Rail Setter Name Role Phone Flora Dominguez MD Primary Care Provider [phone] Encounter Details Date Type Department Care Team Description 06/11/2023 Orders Only Adult Medicine [facility] [address] [place] [address] Flora Dominguez MD [address] [place] [address] Social History Tobacco Use Types Packs/Day Years [...] on filedocumented in this encounter Care Teams Rail Setter Relationship Specialty Start Date End Date Flora Dominguez MD [address] [place] [address] PCP - General Internal Medicine 11/24/21 documented as of this encounter
--- OUTSIDE RECORDS SUMMARY | 2025-03-10 08:27 | XMS_ITS | Encounter Summary ---
Author Organization [facility] Address [address] [place] [address] Care Team Providers Care Flat Folder Name Role Phone Flora Dominguez MD Primary Care Provider [phone] Reason for Visit * Reason Comments E-prescribe Rx Request citalopram (CELEX A) 20 MG tablet Encounter Details Date Type Department Care Team Description 05/04/2023 Refill Adult Medicine [facility] [address] [place] [address] Miriam Rai PA-C [address] [place] [address] E-prescribe Rx Request (citalopram (CELEXA) 20 MG tablet) Social History Tobacco Use Types Packs/Day Years [...] encounter Miscellaneous Notes * Telephone Encounter - Miriam Rai PA-C - 05/04/2023 10:55 AM EST Ok to fill. Patient given enough meds to be seen by PCP next month, has not been seen in 6 months and did not show for her last appointment. Zoey, Debbi * Telephone Encounter - Tanya Hargrove M.A. - 05/04/2023 10:26 AM EST Last office visit 10/25/22 Next office visit 06/08/23 with PCP Pt no showed last visit on 04/13/23 Will you give 90 day supply (per insurance) or just enough until seen? Lab Results Component Value Date ALB 4.1 04/24/2022 SGOT 24 04/24/2022 SGPT 35 04/24/2022 TBILI 0.3 04/24/2022 ALKPHOS 93 04/24/2022 TP 6.9 04/24/2022 * Telephone Encounter - Rickey Jeff - 05/04/2023 10:15 AM EST Patient would like script to be: E-PRESCRIBED/FAXED TO PHARMACY WHEN WAS THE PATIENT'S LAST APPOINTMENT IN ADULT MEDICINE? 10/25/2022 WHEN WAS THE LAST TIME THE PATIENT SAW THEIR PCP? Never seen PCP, future appointment with PCP booked Does patient have an upcoming appointment? Yes 06/08/2023 (THE MEDICATION REQUESTED IS ON THE MED [...] fax? N/A Patients current insurance carrier is: Payor: [facility] FFS / Plan: [facility] / Product Type: MEDICAID RISK documented in this encounter Plan of Treatment Not on file documented as of this encounter Visit Diagnoses Not on filedocumented in this encounter Care Teams Flat Folder Relationship Specialty Start Date End Date Flora Dominguez MD [address] [place] [address] PCP - General Internal Medicine 11/24/21 documented as of this encounter
--- OUTSIDE RECORDS SUMMARY | 2025-03-10 08:27 | XMS_ITS | Encounter Summary ---
Author Organization [facility] Address [address] [place] [address] Care Team Providers Care Commodity Director Name Role Phone Doris Chopra MD Primary Care Provider Eze Cummings MD Primary Care Provider Flora Bernstein MD Primary Care Provider [phone] Reason for Visit * Reason Onset Date Comments other 11/18/2015 Encounter Details Date Type Department Care Team Description 11/18/2015 Telephone Medicine/Pediatrics - [address] [phone] Doris Chopra MD other Social History Tobacco Use Types Packs/Day Years [...] Telephone Encounter - Doris Chopra MD - 11/18/2015 12:16 PM EDT Okay thanks Dr Rodriguez * Telephone Encounter - Veto Rodriguez MD - 11/18/2015 11:58 AM EDT This patient did not come in for endocrine evaluation today. I see she was in contact with the office and apparently got lost. I think they're trying to get her in again within the next few weeks * Telephone Encounter - Miriam Brennan L.P.N. - 11/18/2015 11:37 AM EDT Please sign ref to endocrine pt missed her apt today she got lost Ref set up for 2 weeks * Telephone Encounter - Krystina Hilton - 11/18/2015 10:39 AM EDT Patient missed her appt this morning because she couldn't find the [facility]. They couldn't get her back in until February. They told her to have us call to get her in as a urgent patient. She states her throat hurts. documented in this encounter Plan of Treatment Not on file documented as of this encounter Visit Diagnoses Not on filedocumented in this encounter Care Teams Commodity Director Relationship Specialty Start Date End Date Doris Chopra MD PCP - General Internal Medicine 05/11/15 08/30/20 Eze Tyalor MD PCP - General Internal Medicine 08/31/20 11/23/21 Flora Dominguez MD [address] [place] [address] PCP - General Internal Medicine 11/24/21 documented as of this encounter
--- OUTSIDE RECORDS SUMMARY | 2025-03-10 08:27 | XMS_ITS | Encounter Summary ---
Author Organization [facility] Address [address] [place] [address] Care Team Providers Care Manager Acquisition Name Role Phone Doris Chopra MD Primary Care Provider Eze Cummings MD Primary Care Provider Flora Bernstein MD Primary Care Provider [phone] Reason for Visit * Reason Onset Date Comments medication problems 06/02/2020 Encounter Details Date Type Department Care Team Description 06/02/2020 Telephone Medicine/Pediatrics - [address] [phone] Doris Chopra MD medication problems Social History Tobacco Use Types Packs/Day Years [...] file Not on file Not on file COVID-19 Exposure Response Date Recorded In the last month, have you been in contact with someone who was confirmed or suspected to have Coronavirus / COVID-19? Unable to assess 06/03/2020 7:14 AM EST documented as of this encounter Miscellaneous Notes * Telephone Encounter - Sadaf Julio L.P.N. - 06/02/2020 10:21 AM EST FYI -please sign after telehealth appointment Medication pended for after telehealth appointment on 06/03 Last visit 06/12/19 * Telephone Encounter - Tahmina Crenshaw - 06/02/2020 10:12 AM EST What is the name of the medication patient is having a problem with?: citalopram (CELEXA) 20 MG tablet What is the problem?: pharm requesting alternative and also A 30 supply of the medication Is the patient calling about the problem? NO If the patient is not the caller who is? [facility] Is this a NEW medication?: How long has the patient been taking this medication? Who prescribed this medication for the patient? Dr chopra Who is patients PCP?: Doris Sanchez Payor: [employer] FFS / Plan: [facility] [employer] / Product Type: MEDICAID RISK documented in this encounter Plan of Treatment Not on file documented as of this encounter Visit Diagnoses Not on filedocumented in this encounter Care Teams Manager Acquisition Relationship Specialty Start Date End Date Doris Chopra MD PCP - General Internal Medicine 05/11/15 08/30/20 Eze Taylor MD PCP - General Internal Medicine 08/31/20 11/23/21 Flora Dominguez MD [address] [place] [address] PCP - General Internal Medicine 11/24/21 documented as of this encounter
--- OUTSIDE RECORDS SUMMARY | 2025-03-10 08:27 | XMS_ITS | Clinical Summary ---
Author Organization [facility] Address [address] [place] [address] Care Team Providers Care Biophysics Teacher Name Role Phone Flora Dominguez MD Primary Care Provider [phone] Allergies No known active allergies Medications Medication Sig Dispensed Refills Start Date End Date Status MULTIPLE VITAMINS OR TABS 1 daily 0 Active tretinoin (RETIN-A) 0.1 % cream APPLY TO AFFECTED AREA EVERY EVENING 45 g 1 12/07/2021 Active Cholecalciferol (Vitamin D) 50 MCG (1999) Tab TAKE 1 TABLET BY MOUTH EVERY DAY 30 Tablet 0 03/19/2024 Active citalopram (CELEXA) 20 MG tablet TAKE 1 AND 1/2 TABLETS BY MOUTH DAILY 45 Tablet 0 03/19/2024 Active Active Problems Problem Noted Date Paget's disease of bone 07/08/2019 Overview: Seen on 07/07/2019 bone scan. Multiple thyroid nodules 05/28/2015 Depressive disorder 01/02/2013 Stress 02/29/2012 Acne 02/29/2012 Seasonal allergies 02/29/2012 Hyperlipidemia Resolved Problems Problem Noted Date Resolved Date NO ACTIVE MEDICAL PROBLEMS 02/29/201202/28 Allergic rhinitis, cause unspecified 03/23/2009 02/29/2012 Pain in joint, shoulder region 10/25/2006 1 Immunizations Name Administration Dates Next Due COVID-19 (Moderna) 05/09/2021 COVID-19 (Pfizer) Pt Reported 07/27/2020, 021 Hepatitis B > 19yrs 07/30/2007,12/20/2006,2006 Influenza (> 6 Months) 02/29/2012(Deferred: Raeann ent Refused) Influenza Flu (PT Reported) 03/15/2022 MMR (Okupjjw-Smnxt-Ikynfdw) 03/12/2007, 7 PPD-RBMG 05/17/2011 TD (STATE SUPPLIED FOR ADULT S AND CHILDREN) 10/25/2006 Tdap 02/01/2022,05/17/2011 Family History Medical History Relation Name Comments No Known Problems Father No Known Problems Mother CA Breast Negative Hx CA Colon Negative Hx CA Ovarian Negative Hx Uterine Cancer Negative Hx Relation Name Status Comments Brother Alive [...] file Not on file Not on file Last Filed Vital Signs Vital Sign Reading Time Taken Comments Blood Pressure 102/58 06/08/2023 8:13 AM EST Pulse 68 06/08/2023 8:13 AM EST Temperature 36.4 C (97.5 F) 06/08/2023 8:13 AM EST Respiratory Rate 14 06/08/2023 8:13 AM EST Oxygen Saturation 98% 10/25/2022 3:54 PM EDT Inhaled Oxygen Concentration - - Weight 62.1 kg (137 lb) 06/08/2023 8:13 AM EST Height 162.6 cm (5' 4 ) 06/08/2023 8:13 AM EST Body Mass Index 23.52 06/08/2023 8:13 AM EST Plan of Treatment Health Maintenance Due Date Last Done Comments SHINGLES VACCINE (1 of 2) 2014 MAMMOGRAM 12/17/2022 12/17/2021, 11/19, 11/24/2017, Additional history exists CERVICAL CANCER SCREENING 06/18/20232020, 12/06/2015, 07/22/2012, Additional history exists DEPRESSION SCREENING/FOLLOWUP 05/21/2024, 11/07/2023, 06/08/2023, Additional history exists SOCIAL NEEDS SCREENING 05/21/2024 BASELINE HEALTH EXAM 40-64 06/15/202406/15, 06/15/2022, 06/15/2022, Additional history exists Covid-19 Vaccine ( - 2022-2 4 season) 2025 05/09/2021, 07/27/2020, 07/06/2020 INFLUENZA (#1) 2025 03/15/2022, 03/21 (Refused) COLON CANCER SCREENING 11/15/2026 11/15/2016 CHOLESTEROL SCREENING 06/08/2028 06/08/2023 , 06/15/2022, 06/10/2020, Additional history exists PNEUMOCOCCAL VACCINE FOR HIG H RISK PATIENTS (#1) 2029 DTAP/TDAP/TD (3 - Td or Tdap) 02/02/2032, 05/17/2011, 10/25/2006 HEPATITIS C SCREENING Completed 03/25/2013 Care Teams Biophysics Teacher Relationship Specialty Start Date End Date Flora Dominguez MD [address] [place] [id number] PCP - General Internal Medicine 11/24/21
--- OUTSIDE RECORDS SUMMARY | 2025-03-10 08:27 | XMS_ITS | Encounter Summary ---
Author Organization [facility] Address [address] [place] [address] Care Team Providers Care Twister Doffer Name Role Phone Eze Taylor MD Primary Care Provider Flora Bernstein MD Primary Care Provider [phone] Reason for Visit * Reason Onset Date Comments refill request 10/19/2020 Encounter Details Date Type Department Care Team Description 10/19/2020 Refill Adult Medicine [address] [address] Eze Taylor MD refill request Social History Tobacco Use Types Packs/Day Years [...] encounter Miscellaneous Notes * Telephone Encounter - Belkys Valadez - 10/19/2020 2:47 PM EDT Patient would like script to be: E-PRESCRIBED/FAXED TO PHARMACY WHEN WAS THE PATIENT'S LAST APPOINTMENT IN ADULT MEDICINE? 06/03/20 WHEN WAS THE LAST TIME THE PATIENT SAW THEIR PCP? N/a Does patient have an upcoming appointment? Yes 11/11/20 (THE MEDICATION REQUESTED IS ON THE MED [...] N/A Patients current insurance carrier is: Payor: [employer] FFS / Plan: [employer] / Product Type: MEDICAID RISK documented in this encounter Plan of Treatment Not on file documented as of this encounter Visit Diagnoses Not on filedocumented in this encounter Care Teams Twister Doffer Relationship Specialty Start Date End Date Eze Taylor MD PCP - General Internal Medicine 08/31/20 11/23/21 Flora Dominguez MD [address] [place] [address] PCP - General Internal Medicine 11/24/21 documented as of this encounter
--- OUTSIDE RECORDS SUMMARY | 2025-03-10 08:27 | XMS_ITS | Encounter Summary ---
Author Organization [facility] Address [address] [place] [address] Care Team Providers Care Biofuels Technology Manager Name Role Phone Doris Chopra MD Primary Care Provider Eze Cummings MD Primary Care Provider Flora Bernstein MD Primary Care Provider [phone] Encounter Details Date Type Department Care Team Description 02/19/2018 Paving Block Cutter Report Medical Records [address] [place] [address] Saniya Nicholas MD Social History Tobacco Use Types Packs/Day [...] on filedocumented in this encounter Care Teams Biofuels Technology Manager Relationship Specialty Start Date End Date Doris Chopra MD PCP - General Internal Medicine 05/11/15 08/30/20 Eze Taylor MD PCP - General Internal Medicine 08/31/20 11/23/21 Flora Dominguez MD [address] [place] [address] PCP - General Internal Medicine 11/24/21 documented as of this encounter
--- OUTSIDE RECORDS SUMMARY | 2025-03-10 08:27 | XMS_ITS | Encounter Summary ---
Author Organization [facility] Address [address] [place] [address] Care Team Providers Care Adjunct Physical Education Instructor Name Role Phone Doris Chopra MD Primary Care Provider Eze Cummings MD Primary Care Provider Flora Bernstein MD Primary Care Provider [phone] Reason for Visit * Reason Onset Date Comments Tool Polisher Feedback 07/02/2019 orthopedics Encounter Details Date Type Department Care Team Description 07/02/2019 Telephone Medicine/Pediatrics - [address] [phone] Gurmeet Castro PA-C Tool Polisher Feedback (orthopedics) Social History Tobacco Use Types Packs/Day Years [...] Miscellaneous Notes * Telephone Encounter - Miriam Brennan L.P.N. - 07/02/2019 1:48 PM EST Please advise who he would like ref done to * Telephone Encounter - Gurmeet Castro PA-C - 07/02/2019 1:42 PM EST Can we find out who Dr. Lowery needs us to refer to? There is no referral in the system for a bone tumor specialist and the referrals department is putting it on us to find out where to refer. * Telephone Encounter - Octavia Gomes - 07/02/2019 1:13 PM EST I am not positive because I'm not clinical. But I did look it up though and [facility] does have bone cancer specialists if that is what Dr. Lowery is referring to. Dr. Lowery office number is [phone] if you would like to speak with him regarding this. Thank you! Octavia Galindo Referrals Department * Telephone Encounter - Gurmeet Castro PA-C - 07/02/2019 1:09 PM EST Any thoughts on the referral I would need to order for a bone tumor specialist? * Telephone Encounter - Octavia Gomes - 07/02/2019 9:02 AM EST Sandro Levi, You put in an orthopedic referral for this patient on 06/27/19 with the diagnosis of abnormal ct, lytic lesion hip . We sent it over to our in network ortho providers at [facility]. Dr. Lowery reviewedthe information and he stated this patient has to be seen by a Bone Tumor Specialist for this diagnosis. Please advise. Thank you! Octavia Galindo Referrals Department documented in this encounter Plan of Treatment Not on file documented as of this encounter Visit Diagnoses Not on filedocumented in this encounter Care Teams Adjunct Physical Education Instructor Relationship Specialty Start Date End Date Doris Chopra MD PCP - General Internal Medicine 05/11/15 08/30/20 Eze Taylor MD PCP - General Internal Medicine 08/31/20 11/23/21 Flora Dominguez MD [address] [place] [address] PCP - General Internal Medicine 11/24/21 documented as of this encounter
--- OUTSIDE RECORDS SUMMARY | 2025-03-10 08:28 | XMS_ITS | Encounter Summary ---
Author Organization [facility] Address [address] [place] [address] Care Team Providers Care First Responder Name Role Phone Doris Chopra MD Primary Care Provider Eze Cummings MD Primary Care Provider Flora Bernstein MD Primary Care Provider [phone] Reason for Visit * Reason Onset Date Comments Prior Authorization 10/31/2017 Mometasone f uroate Encounter Details Date Type Department Care Team Description 10/31/2017 Telephone Medicine/Pediatrics - [address] [phone] Doris Chopra MD Prior Authorization (Mometasone furoate) Social History Tobacco Use Types Packs/Day Years [...] encounter Miscellaneous Notes * Telephone Encounter - Dominique Cramer M.A. - 11/05/2017 9:08 AM EDT Msg left for pt to call back, need to let her know that her medication was changed due to ins coverage * Telephone Encounter - Kemi Cho PA-C - 11/05/2017 8:31 AM EDT Sent nasacort otc for pt * Telephone Encounter - Dominique Cramer M.A. - 11/01/2017 7:56 AM EDT Nasonex not covered Can use nasacort otc, triamcinolone allergy otc, fluticasone Pt has tried fluticasone in past, Please reply back to p [phone] Prior Auth pool Dominique Cramer M.A. [facility] Prior Authorizations Ext [id number] * Telephone Encounter - Khadra Forman - 10/31/2017 9:27 AM EDT Pre Authorization for Medication-do not complete and send this encounter unless you have the fax from the pharmacy. Is this a Cover My Meds request: Yes -- Styles Code [id number] Name of Medication MOMETASONE FUROATE Dose of Medication How does patient take this med? What Pharmacy did the fax come from: [facility] Pharmacy fax #: [phone] [employer] Party Information from fax: What Prescription Plan does the patient have? BIN/PCN if applicable: Cardholder ID: Person Code: Relationship Code: Help desk phone: FAXED TO PRIOR AUTH documented in this encounter Plan of Treatment Not on file documented as of this encounter Visit Diagnoses Not on filedocumented in this encounter Care Teams First Responder Relationship Specialty Start Date End Date Doris Chopra MD PCP - General Internal Medicine 05/11/15 08/30/20 Eze Taylor MD PCP - General Internal Medicine 08/31/20 11/23/21 Flora Dominguez MD [address] [place] [address] PCP - General Internal Medicine 11/24/21 documented as of this encounter
--- OUTSIDE RECORDS SUMMARY | 2025-03-10 08:28 | XMS_ITS | Encounter Summary ---
Author Organization [facility] Address [address] [place] [address] Care Team Providers Care Library Circulation Technician Name Role Phone Doris Chopra MD Primary Care Provider Eze Cummings MD Primary Care Provider Flora Bernstein MD Primary Care Provider [phone] Reason for Visit * Reason Onset Date Comments Pain, General 12/06/2017 Encounter Details Date Type Department Care Team Description 12/06/2017 Telephone Medicine/Pediatrics - [address] [phone] Doris Chopra MD Pain, General Social History Tobacco Use Types Packs/Day Years [...] encounter Miscellaneous Notes * Telephone Encounter - Miiram Brennan L.P.N. - 12/06/2017 2:06 PM EDT Pt has been having left sided body pain has a hx of back pain No weakness pt states she has a nodule in her throat Has been taking a Excedrin this am She states the pain moves around No sob no chest pain no temp Apt booked * Telephone Encounter - Jo-Ann Azevedo - 12/06/2017 2:00 PM EDT Symptoms patient is presenting: Patient c/o pain throughout whole left side of body. Mentioned throat pain, kidney pain. Can't pin point exactly where it starts If pain or injury related was it due to an accident at work or from a motor vehicle accident? NO If yes, gather 3rd green party insurance information Date of accident/Injury: How long has patient had these symptoms?: 3 days PCP: Doris Sanchez Payor: [employer] / Plan: [employer] / Product Type: OTHER documented in this encounter Plan of Treatment Not on file documented as of this encounter Visit Diagnoses Not on filedocumented in this encounter Care Teams Library Circulation Technician Relationship Specialty Start Date End Date Doris Chopra MD PCP - General Internal Medicine 05/11/15 08/30/20 Eze aTylor MD PCP - General Internal Medicine 08/31/20 11/23/21 Flora Dominguez MD [address] [place] [address] PCP - General Internal Medicine 11/24/21 documented as of this encounter
--- OUTSIDE RECORDS SUMMARY | 2025-03-10 08:28 | XMS_ITS | Encounter Summary ---
Author Organization [facility] Address [address] [place] [address] Care Team Providers Care Die Maintenance Technician Name Role Phone Eze Taylor MD Primary Care Provider Flora Bernstein MD Primary Care Provider Reason for Visit * Reason Onset Date Comments Prior Authorization 09/05/2021 Encounter Details Date Type Department Care Team Description 09/05/2021 Telephone Adult Medicine [facility] [address] [place] [address] Maria Fernanda Sewell PA [address] [place] [address] Prior Authorization Social History Tobacco Use Types [...] encounter Miscellaneous Notes * Telephone Encounter - Trina Milian M.A. - 09/06/2021 8:43 AM EDT Styles code on CMM is for Tretinoin not Triamcinolone Acetonide. I called [facility] and Tretinoin 0.1% cream is what needs prior authorization. Dx code: L70.9 Acne Vulgaris Prior authorization done on CMM to for Tretinoin 0.1% cream. Approved from 09/06/2021-09/06/2022. Case # [id number]. [facility] Pharmacy notified by phone and paid claim went through. * Telephone Encounter - Ynes Friedman - 09/05/2021 1:28 PM EDT Prior Authorization for Medication-do not complete and send this encounter unless you have the fax from the pharmacy. Is this a Cover My Meds request: Yes -- Styles Code [id number] Name of Medication Triamcinolone Acetonide Dose of Medication 55 MCG/ACT Aerosol What is the RX # from the faxed refill? How does patient take this med? Route: 2 Sprays by Nasal route daily. - Nasal What Pharmacy did the fax come from: [facility] Pharmacy fax #: [phone] [employer] Information from fax: What Prescription Plan does the patient have? BIN/PCN if applicable: Cardholder ID: Person Code: Relationship Code: Help desk phone: documented in this encounter Plan of Treatment Not on file documented as of this encounter Visit Diagnoses Not on filedocumented in this encounter Care Teams Die Maintenance Technician Relationship Specialty Start Date End Date Eze Taylor MD PCP - General Internal Medicine 08/31/20 11/23/21 Flora Dominguez MD [address] [place] [id number] PCP - General Internal Medicine 11/24/21 documented as of this encounter
--- OUTSIDE RECORDS SUMMARY | 2025-03-10 08:28 | XMS_ITS | Encounter Summary ---
Author Organization [facility] Address [address] [place] [address] Care Team Providers Care Barber Instructor Name Role Phone Doris Chopra MD Primary Care Provider Eze Cummings MD Primary Care Provider Flora Bernstein MD Primary Care Provider [phone] Encounter Details Date Type Department Care Team Description 05/01/2017 Rail Signal Mechanic Report Medical Records [address] [place] [id number] Saniya Nicholas MD Social History Tobacco Use [...] on filedocumented in this encounter Care Teams Barber Instructor Relationship Specialty Start Date End Date Doris Chopra MD PCP - General Internal Medicine 05/11/15 08/30/20 Eze Taylor MD PCP - General Internal Medicine 08/31/20 11/23/21 Flora Dominguez MD [address] [place] [address] PCP - General Internal Medicine 11/24/21 documented as of this encounter
--- OUTSIDE RECORDS SUMMARY | 2025-03-10 08:28 | XMS_ITS | Encounter Summary ---
Author Organization [facility] Address [address] [place] [address] Care Team Providers Care Lode Miner Name Role Phone Doris Chopra MD Primary Care Provider Eze Cummings MD Primary Care Provider Flora Bernstein MD Primary Care Provider [phone] Reason for Visit * Reason Onset Date Comments Prior Authorization 10/31/2017 tretinoin Encounter Details Date Type Department Care Team Description 10/31/2017 Telephone Medicine/Pediatrics - [address] [id number] Doris Chopra MD Prior Authorization (tretinoin) Social History Tobacco Use Types Packs/Day Years [...] Encounter - Dominique Cramer M.A. - 11/01/2017 7:48 AM EDT Prior auth done by form to [facility] for tretinoin Pt has used tretinoin since 04/25/2007 with good results Dx acne vulgaris per office notes on 10/07/2014 Also using benzoyl peroxide * Telephone Encounter - Khadra Forman - 10/31/2017 9:24 AM EDT Pre Authorization for Medication-do not complete and send this encounter unless you have the fax from the pharmacy. Is this a Cover My Meds request: Yes -- Styles Code [id number] Name of Medication TRETINOIN Dose of Medication How does patient take this med? What Pharmacy did the fax come from: [facility] Pharmacy fax #: [phone] [employer] Information from fax: What Prescription Plan does the patient have? BIN/PCN if applicable: Cardholder ID: Person Code: Relationship Code: Help desk phone: *FAXED TO PRIOR AUTH documented in this encounter Plan of Treatment Not on file documented as of this encounter Visit Diagnoses Not on filedocumented in this encounter Care Teams Lode Miner Relationship Specialty Start Date End Date Doris Chopra MD PCP - General Internal Medicine 05/11/15 08/30/20 Eze Taylor MD PCP - General Internal Medicine 08/31/20 11/23/21 Flora Dominguez MD [address] [place] [id number] PCP - General Internal Medicine 11/24/21 documented as of this encounter
[2025-03-10 08:57] VITALS: BP 119/55; PULSE 86; RESP 16; O2SAT 91
== END 2025-03-10 09:15 | disposition home or self-care (01) ==
LOC: HO.PMCPRC 08:20
PROVIDERS: PCP Internal Medicine; Visit Provider Anesthesiology
DX: M47.812 Spondylosis without myelopathy or radiculopathy, cervical region (principal)
CPT/HCPCS: 64490; 64491

== ENCOUNTER 2025-03-12 15:44 | Outpatient (AMB) | payer OTHER, SELFPAY ==
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
[2025-03-12 15:48] VITALS: BP 126/58; PULSE 65; O2SAT 100; BMI 23.7
--- OUTSIDE RECORDS SUMMARY | 2025-03-12 19:15 | XMS_ITS | Encounter Summary ---
Author Organization [employer] Address [address] [place] [address] [address] [place] [address] Care Team Providers Care Plumbing Foreman Name Role Phone Unavailable Primary Care Provider Unavailabl e Encounter Details Date Type Department Care Team (Latest Contact Info) Description 08/10/[address] [facility] CONVERSIONS Dental, Provider, DDS Social History [...] EST Office Visit [facility] [address] [place] [address] [place] documented as of this encounter Visit Diagnoses Not on filedocumented in this encounter
--- OUTSIDE RECORDS SUMMARY | 2025-03-12 19:15 | XMS_ITS | Encounter Summary ---
Author Organization [employer] Address [address] [place] [address] [address] [place] [address] Care Team Providers Care Hand Former Name Role Phone Unavailable Primary Care Provider Unavailabl e Reason for Visit * Reason Onset Date Comments appt for root canal 03/26/2023 Encounter Details Date Type Department Care Team (Late Contact Info) Description 03/26/2023 Telephone [facility] [address] [place] [address] Barbara Walters DDS [address] [place] [address] appt for root canal Social History Tobacco [...] Description 04/09/2025 10:00 AM EST Office Visit [facility] [address] [place] [address] [place] documented as of this encounter Visit Diagnoses Not on filedocumented in this encounter
--- OUTSIDE RECORDS SUMMARY | 2025-03-12 19:15 | XMS_ITS | Clinical Summary ---
Author Organization [employer] Address [address] [place] [address] [address] [place] [address] Care Team Providers Care Taxation Accountant Name Role Phone Unavailable Primary Care Provider [...] Upcoming Encounters Date Type Department Care Team ([facility] st Contact Info) Description 04/09/2025 10:00 AM EST Office Visit [facility] [address] [place] [address] [place] [facility] Maintenance Due Date Last [...] Billing Address Personal/[place] [address]
--- OUTSIDE RECORDS SUMMARY | 2025-03-12 19:15 | XMS_ITS | Encounter Summary ---
Author Organization [facility] Address [address] [place] [address] 7 [place] [address] Care Team Providers Care Retail Seasonal Specialist Name Role Phone Unavailable Primary Care Provider Unavailabl e Reason for Visit * Reason Onset Date Comments Prior Authorization 05/17/2023 Encounter Details Date Type Department Care Team (Late Contact Info) Description 05/17/2023 Telephone [facility] [address] [place] [address] Andria Baker DDS Prior Authorization Social History [...] Description 04/09/2025 10:00 AM EST Office Visit [facility] [address] [place] [address] [place] documented as of this encounter Visit Diagnoses Not on filedocumented in this encounter
--- OUTSIDE RECORDS SUMMARY | 2025-03-12 19:15 | XMS_ITS | Clinical Summary ---
Author Organization Patient Business Ser [facility] Address [address] [place] [address] Care Team Providers Care Nurse Transplant Name Role Phone Flora Dominguez MD Primary Care Provider [phone] Allergies No known active allergies Medications multivitamin [...] Stress 02/29/2012 Seasonal allergies 02/29/2012 Acne 02/29/2012 Immunizations Immunization Administration Dates Next Due Hepatitis B ([id number] , Recombivax HB-Adult) 19yo and older 07/30/2007,12/20/2006,11/14/2006 [...] 3:00 PM EST Office Visit Adult Medicine [address] [phone] Flora Dominguez MD [address] [place] [address] Health Maintenance Due Date Last Done Comments [...] Date/Time Associated Diagnosis Comments EXTERNAL MRI REPORT 02/23/2025 EXTERNAL MRI REPORT 02/23/2025 EXTERNAL MRI REPORT 12/22/2024 EXTERNAL MRI REPORT [...] Health Maintenance Results * External MRI Report (02/23/2025) Only the most recent of4 resultswithin the time period is included. Anatomical Region Laterality Modality Magnetic Resonan ce us Provider [facility] IMG MRI PROCEDURES Final Result * Thyroid stimulating hormone with reflex to free t4 and free t3 (12/12/2024 11:46 AM EDT) TSH 1.13 0.40 - 4.00 mcIU/mL LAB CHEMISTRY METHOD 12/12/2024 4:[address] [facility] Blood Venous blood specimen / Unknown Venipuncture / Unknown 12/12/2024 11:46 AM EDT 12/12/2024 11:46 AM EDT us Flora Dominguez MD LAB BLOOD ORDERABLES Final Resul t [facility] [address] [place] [address], * (ABNORMAL) Lipid panel with reflex to direct LDL (12/12/2024 11:46 AM EDT) Cholesterol 220(H) 0 - 200 mg/dL LAB CHEMISTRY METHOD 12/12/2024 4:[address] [facility] Triglycerides 117 0 - 150 mg/dL LAB CHEMISTRY METHOD 12/12/2024 4:[address] [facility] HDL 62 >=40 mg/dL LAB CHEMISTRY METHOD 12/12/2024 4:[address] [facility] LDL Calculated 135(H) 0 - 100 mg/dL LAB CHEMISTRY METHOD 12/12/2024 4:[address] [facility] VLDL Cholesterol Anthony 23.4 mg/dL LAB CHEMISTRY METHOD 12/12/2024 4:[address] [facility] Non HDL Chol. (LDL+VLDL) 158(H) <145 mg/dL LAB CHEMISTRY METHOD 12/12/2024 4:[address] [facility] Chol/HDL Ratio 3.5 0.0 - 4.4 LAB CHEMISTRY METHOD 12/12/2024 4:[address] [facility] Blood Venous blood specimen / Unknown Venipuncture / Unknown 12/12/2024 11:46 AM EDT 12/12/2024 11:46 AM EDT us Flora Dominguez MD LAB BLOOD ORDERABLES Final Resul t [facility] [address] [place] [address], * CBC auto differential (12/12/2024 11:46 AM EDT) WBC 5.2 4.8 - 10.8 K/mcL LAB HEMETOLOGY METHOD 12/12/2024 2:[address] [facility] RBC 4.80 3.80 - 4.80 M/mcL LAB HEMETOLOGY METHOD 12/12/2024 2:[address] [facility] Hemoglobin 13.2 11.5 - 16.0 g/dL LAB HEMETOLOGY METHOD 12/12/2024 2:[address] [facility] Hematocrit 41.1 35.0 - 47.0 % LAB HEMETOLOGY METHOD 12/12/2024 2:[address] [facility] MCV 85.6 79.0 - 98.0 FL LAB HEMETOLOGY METHOD 12/12[facility] MCH 27.5 27.0 - 32.0 pcg LAB HEMETOLOGY METHOD 12/12/2024 2[facility] MCHC 32.1 32.0 - 37.0 g/dL LAB HEMETOLOGY METHOD 12/12/2024 2:07 [facility] RDW 12.9 11.0 - 15.0 % LAB HEMETOLOGY METHOD 12/12/2024 2:07 PM [facility] Platelets 160 130 - 400 K/mcL LAB HEMETOLOGY METHOD 12/12/2024 2:07 PM [facility] MPV 10.3 7.0 - 11.0 FL LAB HEMETOLOGY METHOD 12/12/2024 2:07 [facility] NRBC 0.0 <1.0 % LAB HEMETOLOGY METHOD 12/12/2024 2:07 PM [facility] NRBC Absolute 0.00 <0.10 K/mcL LAB HEMETOLOGY METHOD 12/12/2024 2:07 PM [facility] Neutrophils Relative 62.7 % LAB HEMETOLOGY METHOD 12/12/2024 2:07 PM [facility] Lymphocytes Relative 28.1 % LAB HEMETOLOGY METHOD 12/12/2024 2:07 PM [facility] Monocytes Relative 6.9 % LAB HEMETOLOGY METHOD 12/12/2024 2:07 PM [facility] Eosinophils Relative 1.7 % LAB HEMETOLOGY METHOD 12/12/2024 2:07 PM [facility] Basophils Relative 0.4 % LAB HEMETOLOGY METHOD 12/12/2024 2:07 PM [facility] Immature Granulocytes Relative 0.2 % LAB HEMETOLOGY METHOD 12/12/2024 2:[address] [facility] Neutrophils Absolute 3.29 1.50 - 7.00 K/mcL LAB HEMETOLOGY METHOD 12/12/2024 2:[address] [facility] Lymphocytes Absolute 1.47 1.00 - 5.00 K/mcL LAB HEMETOLOGY METHOD 12/12/2024 2:[address] [facility] Monocytes Absolute 0.36 0.20 - 1.00 K/mcL LAB HEMETOLOGY METHOD 12/12/2024 2:[address] [facility] Eosinophils Absolute 0.09 0.00 - 0.50 K/mcL LAB HEMETOLOGY METHOD 12/12/2024 2:[address] [facility] Basophils Absolute 0.02 0.00 - 0.20 K/mcL LAB HEMETOLOGY METHOD 12/12/2024 2:[address] [facility] Immature Granulocytes Absolute 0.01 0.00 - 0.03 K/mcL LAB HEMETOLOGY METHOD 12/12/2024 2:[address] [facility] Blood Venous blood specimen / Unknown Venipuncture / Unknown 12/12/2024 11:46 AM EDT 12/12/2024 11:46 AM EDT us Flora Dominguez MD LAB BLOOD ORDERABLES Final Resul t [facility] [address] [place] [address], * Vitamin D 25 hydroxy (12/12/2024 11:46 AM EDT) Vit D, 25-Hydroxy 49.1 30.0 - 80.0 ng/mL LAB CHEMISTRY METHOD 12/12/2024 4:[address] [facility] Blood Venous blood specimen / Unknown Venipuncture / Unknown 12/12/2024 11:46 AM EDT 12/12/2024 11:46 AM EDT us Flora Dominguez MD LAB BLOOD ORDERABLES Final Resul t [facility] [address] [place] [address], * (ABNORMAL) Comprehensive metabolic panel (12/12/2024 11:46 AM EDT) Sodium 136 133 - 145 mmol/L LAB CHEMISTRY METHOD 12/12/2024 4:06 PM [facility] Potassium 3.8 3.5 - 5.5 mmol/L LAB CHEMISTRY METHOD 12/12/2024 4:06 PM [facility] Chloride 99 96 - 110 mmol/L LAB CHEMISTRY METHOD 12/12/2024 4:06 PM [facility] CO2 33(H) 21 - 32 mmol/L LAB CHEMISTRY METHOD 12/12/2024 4:06 PM [facility] Anion Gap 4 3 - 11 LAB CHEMISTRY METHOD 12/12/2024 4:06 PM [facility] Glucose 82 70 - 100 mg/dL LAB CHEMISTRY METHOD 12/12/2024 4:06 PM [facility] BUN 9 5 - 25 mg/dL LAB CHEMISTRY METHOD 12/12/2024 4:06 PM [facility] Creatinine 0.62 0.50 - 1.10 mg/dL LAB CHEMISTRY METHOD 12/12/2024 4:06 PM [facility] eGFR 103 >=60 mL/min/1. 73m2 LAB CHEMISTRY METHOD 12/12/2024 4:06 PM [facility] Comment:Calculation based on the Chronic Kidney Disease Epidemiology Collaboration (CKD-EPI) equation refit without adjustment for race. BUN/Creatinine Ratio 14.5 LAB CHEMISTRY METHOD 12/12/2024 4:[address] [facility] Calcium 9.3 8.5 - 10.5 mg/dL LAB CHEMISTRY METHOD 12/12/2024 4:06 PM [facility] AST (SGOT) 18 10 - 42 unit/L LAB CHEMISTRY METHOD 12/12/2024 4:06 PM [facility] ALT (SGPT) 26 10 - 60 unit/L LAB CHEMISTRY METHOD 12/12/2024 4:[address] [facility] Alkaline Phosphatase 91 42 - 121 unit/L LAB CHEMISTRY METHOD 12/12/2024 4:06 PM [facility] Total Protein 7.0 6.0 - 8.0 g/dL LAB CHEMISTRY METHOD 12/12/2024 4:06 PM [facility] Albumin 4.4 3.2 - 5.0 g/dL LAB CHEMISTRY METHOD 12/12/2024 4:06 PM [facility] Total Bilirubin 0.3 0.0 - 1.4 mg/dL LAB CHEMISTRY METHOD 12/12/2024 4:06 PM [facility] Blood Venous blood specimen / Unknown Venipuncture / Unknown 12/12/2024 11:46 AM EDT 12/12/2024 11:46 AM EDT us Flora Dominguez MD LAB BLOOD ORDERABLES Final Resul t [facility] [address] [place] [address], * SCREENING MAMMOGRAPHY BI 2-VIEW BREAST INC [...] 1 - negative us Radiology Results Historical IMG XR PROCEDURE S Final Result * Pap smear (06/18/2020) 06/18/2020 Narrative HISTORICAL TESTING LAB RESULTING AGENCY - 06/25/2020 11:41 AM EST [id number] THINPREP PAP, IMAGED: NEGATIVE FOR SQUAMOUS INTRAEPITHELIAL [...] 2016 ASCUS, NEG HPV, Z12.4 Kenna Hernandez CN LAB CYTOLOGY ORDERABLES Final Result HISTORICAL TESTING LAB RESULTING AGENCY * Colonoscopy (11/15/2016) Colonoscopy negative Anatomical Region Laterality Modality Other Historical Provider HEALTH MAINTENANCE Final Result from Last 3 Months or Most Recently Relevant to Health Maintenance Insurance [facility] Care Teams Nurse Transplant Relationship Specialty Start Date End Date Flora Dominguez MD [address] [place] [phone] PCP - General Internal Medicine 04/07/24
--- OUTSIDE RECORDS SUMMARY | 2025-03-12 19:15 | XMS_ITS | Encounter Summary ---
Author Organization [employer] Address [address] [place] [address] [address] [place] [address] Care Team Providers Care Director Selection And Administration Name Role Phone Unavailable Primary Care Provider Unavailabl e Encounter Details Date Type Department Care Team (Late Contact Info) Description 06/14/2023 Telephone [facility] [address] [place] [address] Barbara Walters DDS [address] [place] [address] Social History Tobacco Use Types Packs/Day Years [...] 10:00 AM EST Office Visit [facility] [address] [place] [address] [place] documented as of this encounter Visit Diagnoses Not on filedocumented in this encounter
== END 2025-03-12 16:11 | disposition home or self-care (01) ==
PROVIDERS: PCP Internal Medicine; Visit Provider Nurse Practitioner Family
DX: M47.812 Spondylosis without myelopathy or radiculopathy, cervical region (principal); M54.12 Radiculopathy, cervical region; M50.30 Other cervical disc degeneration, unspecified cervical region; M47.817 Spondylosis without myelopathy or radiculopathy, lumbosacral region; M51.369 Other intervertebral disc degeneration, lumbar region without mention of lumbar back pain or lower extremity pain; M54.16 Radiculopathy, lumbar region
CPT/HCPCS: 99214